=== PATIENT | male | born 1945 | race Caucasian/White ===

== ENCOUNTER 2019-03-13 07:03 | Inpatient (IN) ==
[2019-03-13] MEDS ORDERED: SODIUM CHLORIDE 0.9% 1000ML 1,000 ML IV SCH (07:30)
--- NOTE | 2019-03-13 07:33 | XRay Report ---
SINGLE VIEW CHEST CLINICAL HISTORY: Generalized abdominal pain. FINDINGS: An AP, portable, upright chest radiograph is compared to study dated 05/20/2010. The examin ation is degraded by portable technique and patient rotation. The heart is mildly enlarged and there is mild atherosclerotic calcification of the thoracic aorta. Epicardial pacing leads are in place. T he pulmonary vasculature is noncongested. There is bibasilar scarring/atelectasis. No airspace consol idation or large pleural effusion is identified. No pneumothorax is seen. The skeletal structures are osteopenic. The bony thorax is grossly intact. IMPRESSION: Mild cardiac enlargement with no acute cardiopulmonary abnormality. Electronically signed by: Austin Gray M.D. 03/13/2019 7:32 AM
[2019-03-13] MEDS ORDERED: IOVERSOL 100ml IV PRN (07:45)
[2019-03-13 07:56] LABS: Alanine Aminotransferase 20 U/L (12-78); Albumin Level 3.6 gm/dl (3.4-5.0); Aspartate Aminotransferase 15 U/L (15-37); BUN Creatinine Ratio 13.6 (10-20); Blood Urea Nitrogen 17 mg/dl (7-18); Calcium 8.9 mg/dl (8.5-10.1); Carbon Dioxide 27 mmol/L (21-32); Chloride 100 mmol/L (98-107); Est GFR (African American) 65.6; Est GFR (Non-African American) 56.6; Glucose 130 mg/dl (70-99); Potassium 3.7 mmol/L (3.5-5.1); Sodium 136 mmol/L (136-145)
[2019-03-13 07:59] LABS: INR 1.2 (0.9-1.1); Partial Thromboplastin Ratio 1.1; Partial Thromboplastin Time 31.1 Seconds (21.0-31.0); Prothrombin Time 11.8 Seconds (9.0-12.0)
[2019-03-13 08:01] LABS: Alkaline Phosphatase 84 U/L (45-117); Bilirubin,Total 1.5 mg/dl (0.2-1); Globulin 3.6 gm/dl (2.5-4.0); Total Protein 7.2 gm/dl (6.4-8.2); Troponin I < 0.015 ng/ml (0-0.045)
--- NOTE | 2019-03-13 08:02 | CT Scan Report ---
CT abd pelvis IV con only CT DOSE: 599.54 mGy.cm HISTORY: Pain. Nausea. right sided pain TECHNIQUE: Multiaxial CT images of the abdomen and pelvis were performed following the use of intrave nous contrast. A dose lowering technique was utilized adhering to the principles of ALARA. COMPARISON STUDY: None. FINDINGS: Minimal infiltrative/atelectatic process right middle lobe. Mild bibasilar dependent atelec tasis. Mild fatty replacement of liver. 1 cm cyst anterior right hepatic lobe. Kidneys enhance uniformly. There are several small renal parapelvic cysts bilaterally. No evidence fo r renal hydronephrosis. Gallbladder is distended and shows evidence for pericholecystic edema edematous change. Quadrant ultrasound is suggested to exclude acute calculus versus acalculous cholecystitis. The bowel pattern is considered nonobstructive. There is fracturing minimal nonobstructive reactive i leus. Bladder is midline. Trace amount of free fluid within the pelvic cul-de-sac. IMPRESSION: 1. Distended gallbladder with considerable pericholecystic edematous change. 2. Right upper quadrant ultrasound is recommended to exclude acute cholecystitis. 3. Focal right middle lobe atelectatic/infiltrative change. 4. Trace free fluid within the pelvic cul-de-sac. The above report was generated using voice recognition software. It may contain grammatical, syntax or spelling errors. Electronically signed by: Steve Fierro M.D. 03/13/2019 8:01 AM
[2019-03-13] MEDS ORDERED: PIPERACILLIN/TAZOBACTAM 4.5 GM/120 ML BAG IV ONE (08:06)
[2019-03-13] MEDS ORDERED: PIPERACILL/TAZOBAC CONSULT ACTIVE PRN (08:06)
[2019-03-13] MEDS ORDERED: fentaNYL citrate 100 MCG/2 ML VIAL IV PRN (08:10)
[2019-03-13] MEDS ORDERED: ONDANSETRON INJ 2 MG/ML 2 ML VIAL IV STA (08:10)
[2019-03-13 08:11] LABS: Basophils # (auto) 0.02 K/uL (0-0.2); Basophils % (auto) 0.1 %; Giant Platelets 1+; Hematocrit (blood only) 44.6 % (42-52); Hemoglobin 15.9 g/dL (14.0-18.0); Immature Granulocytes # (auto) 0.07 K/uL (0.00-0.02); Immature Granulocytes % (auto) 0.4 %; Lymphocytes # (auto) 0.92 K/uL (1.2-3.4); Lymphocytes % (auto) 4.9 %; Mean Corpuscular Hgb Conc 35.7 g/dL (32-36); Mean Corpuscular Volume 91.2 fL (80-100); Mean Platelet Volume 12.7 fL (7.4-10.4); Monocytes % (auto) 10.8 %; Neutrophils # (auto) 15.59 K/uL (1.4-6.5); Neutrophils % (auto) 83.8 %; Platelet Count 127 K/uL (130-400); Platelet Estimate Decreased (Normal); RDW Standard Deviation 50.2 fL (36.4-46.3); Red Blood Count 4.89 M/uL (4.7-6.1)
--- NOTE | 2019-03-13 08:18 | Emergency Department Note ---
Entered by Rosana Sheldon acting as a scribe for Les Jefferson DO History of Present Illness General Chief complaint: Abdominal Pain Stated complaint: STOMACH PAIN X 3 DYS Source: patient History of Present Illness Provider complaint: Abdominal pain Onset (ago): day(s) 2 Location: abdomen Radiation: flank (right) Pain Consistency: + constant Maximum Pain Intensity: 5 Quality: + dull Exacerbated By: + other (breathing ) Associated symptoms: + other (Positive: upper abdominal pain, right flank pain. Negative: groin pain, testicular pain, bloody stool, black stool); no nausea/vomiting The patient is a 73 year old male who presents to the ED with complaints of constant dull upper abdominal pain that started two days ago. The patient reports he has had abdominal pain for nine months; however, it was severe Wednesday morning. He notes his pain radiates to his right flank. The patient reports he took over the counter antacid for the pain, however it did not help. He notes his pain is worsened with breathing. He denies groin pain or testicular pain. The patient reports he takes metoprolol for atrial fibrillation. He notes he does not use tobacco or alcohol. The patient states he has history of heart valve repair. He denies history of cancer or prostate issues. The patient denies nausea, vomiting, bloody stool, or black stool. Home Medications Home Medications Medication Instructions Recorded Confirmed Type ascorbic acid (vitamin C) [Vitamin 1,500 mg PO DAILY #0 06/13/07 03/13/19 History C] multivitamin 1 tab PO DAILY #0 06/13/07 03/13/19 History cholecalciferol (vitamin D3) 1,000 unit PO DAILY #0 05/20/10 03/13/19 History [Vitamin D3] metoprolol tartrate 25 mg PO DAILY #0 11/05/10 03/13/19 History Essential 90 Powder (Multivitamin) 1 dose PO DAILY 03/13/19 03/13/19 History aspirin 81 mg PO DAILY 03/13/19 03/13/19 History turmeric root extract 500 mg PO DAILY 03/13/19 03/13/19 History zinc gluconate 50 mg PO DAILY 03/13/19 03/13/19 History Allergies Allergy/AdvReac Type Severity Reaction Status Date / Time No Known Allergies Allergy Unknown Verified 06/11/07 07:21 Past Med/Surg History Medical History Lia's syndrome (Resolved) PVCs (premature ventricular contractions) (Chronic) Paroxysmal SVT (supraventricular tachycardia) (Chronic) Hypertension (Chronic) Postoperative atrial fibrillation (Resolved) Resolved, no further recurrences Prediabetes (Chronic) Dyslipidemia (Chronic) Surgical History H/O atrial septal defect repair (Chronic) H/O inguinal hernia repair (Chronic) History of total right hip arthroplasty (Chronic) History of mitral valve repair (Chronic) Family History Mother Diabetes Social History Preferred Language: Italian Communication Ability: Effective Digital Program Manager Required: No Beliefs That Will Affect Care: None Current Living Situation: Alone Feels Safe at Home: Yes Safety Concerns: Feels Safe At This Time Smoking Status: Never smoker Do You Dip or Chew Tobacco: No ; Hx Alcohol Use: Yes Alcohol type: hard liquor Alcohol Intake Frequency: Daily Alcohol Intake Frequency Comment: 2 shots/day Hx Substance Use: No Review of Systems See HPI for pertinent positives & negatives. and A total of 10 systems reviewed and were otherwise negative Physical Exam Vital Signs Vital Signs - 24 hr 03/13/19 07:07 03/13/19 07:32 03/13/19 08:31 Temperature 36.6 C Temperature Source Oral Sepsis Recent Fever Within 48 Hours No Sepsis Action Taken by Nursing No Action Required Pulse Rate 82 Pulse Rate [Right Finger] 71 Pulse Rhythm [Right Finger] Regular Pulse Strength [Right Finger] Normal Respiratory Rate 20 20 Respiratory Effort / Characteristics Non-Labored Spontaneous Respiratory Depth Normal Blood Pressure 120/71 Blood Pressure [Left Arm] 131/74 Blood Pressure Mean 87 Blood Pressure Mean [Left Arm] 93 Blood Pressure Position [Left Arm] Lying Pulse Oximetry 98 98 Oxygen Delivery Method Room Air Room Air Room Air GENERAL: Patient is awake, alert, and in no acute distress.Patient is resting comfortably and showing no signs of anxiety EYES: The conjunctivae are clear. The pupils are round and reactive. EARS, NOSE, MOUTH AND THROAT: The nose is without any evidence of any deformity. Mucous membranes are moist.Tongue is midline NECK: The neck is nontender and supple. RESPIRATORY: Normal respiratory effort is noted. There is no evidence of wheezing rhonchi or rales to auscultation. CARDIOVASCULAR: Regular rate and rhythm noted. There no murmurs rubs or gallops normal S1 normal S2 GASTROINTESTINAL: The abdomen is soft. Bowel sounds are present in all quadrants. Abdomen is mildly distended. Right upper quadrant tenderness to palpation. Mild guarding to the right upper quadrant. BACK: No midline tenderness or or step-off noted range of motion in flexion extension as well as rotation no signs of muscle spasm noted. MUSCULOSKELETAL/EXTREMITIES: There is no evidence of gross deformity. Full range of motion is noted in the hips and shoulders. SKIN: There is no obvious evidence of any rash. There are no petechiae, pallor or cyanosis noted. NEUROLOGIC: Patient is awake alert and oriented x3. Strength is symmetric. Patellar reflexes are 2+ bilaterally. Course 0716: The patient was evaluated in room A12B. A complete history and physical exam was performed. 0808: Upon reevaluation, the patient is resting comfortably. I discussed laboratory and radiographic results with him. The patient verbalized agreement of the treatment plan. The patient will be evaluated for further management and care. 0814: I discussed the patient's cause with Marce Brown. The patient will be admitted to [facility]. 0819: I discussed the patient's cause with Dr. Barbour, General Surgery. He recommends medical admission and will evaluate the patient for further management. Consultations Consultation #1: I discussed the patient's cause with Marce Brown. The patient will be admitted to [facility]. Time: 08:14 Consultation #2: I discussed the patient's cause with Dr. Barbour, General Surgery. He recommends medical admission and will evaluate the patient for further management. Time: 08:19 Administered Medications Potassium Chloride/Sodium Chloride (Normal Saline W/20 Meq Kcl) 20 meq in 1,000 mls @ 100 mls/hr IV .Q10H [facility] Stop: 04/12/19 09:59 Last Admin: 03/13/19 20:53 Dose: 100 mls/hr Documented by: [id number] Infusion: 03/13/19 20:53 Dose: 100 mls/hr Documented by: [id number] Admin: 03/13/19 10:58 Dose: 100 mls/hr Documented by: [id number] Piperacillin Sod/Tazobactam (Sod 3.375 gm/ Dextrose) 115 mls @ 28.75 mls/hr IV Q8H [facility]; Protocol Stop: 03/23/19 13:59 Last Admin: 03/14/19 05:04 Dose: 28.8 mls/hr Documented by: [id number] Infusion: 03/14/19 01:14 Dose: 0 mls/hr Documented by: [id number] Admin: 03/13/19 21:13 Dose: 28.8 mls/hr Documented by: [id number] Infusion: 03/13/19 18:16 Dose: 0 mls/hr Documented by: [id number] Admin: 03/13/19 14:15 Dose: 28.8 mls/hr Documented by: [id number] Metoprolol Tartrate (Lopressor) 25 mg PO DAILY [facility] Stop: 04/12/19 09:59 Last Admin: 03/13/19 13:06 Dose: Not Given Documented by: [id number] Morphine Sulfate (Morphine Sulfate) 3 mg IV Q3H PRN PRN Reason: Pain Stop: 03/27/19 09:51 Last Admin: 03/13/19 15:57 Dose: 3 mg Documented by: [id number] Admin: 03/13/19 12:23 Dose: 3 mg Documented by: [id number] Discontinued Medications Fentanyl Citrate (Fentanyl Citrate) 50 mcg IV Q15M PRN PRN Reason: Pain Stop: 03/27/19 08:09 Last Admin: 03/13/19 08:16 Dose: 50 mcg Documented by: [id number] Sodium Chloride (Nss 1000ml) 1,000 mls @ 999 mls/hr IV .Q1H1M [facility] Stop: 03/13/19 08:30 Last Infusion: 03/13/19 08:32 Dose: 0 mls/hr Documented by: [id number] Admin: 03/13/19 07:31 Dose: 999 mls/hr Documented by: [id number] Piperacillin Sod/Tazobactam Sod (Zosyn) 4.5 gm in 120 mls @ 240 mls/hr IV NOW ONE Stop: 03/13/19 08:35 Last Infusion: 03/13/19 08:56 Dose: 0 mls/hr Documented by: [id number] Admin: 03/13/19 08:16 Dose: 240 mls/hr Documented by: [id number] Ioversol (Optiray 320 100ml) 94 ml IV ONCE PRN PRN Reason: Interaction Checking Stop: 03/17/19 07:44 Last Admin: 03/13/19 07:46 Dose: 94 ml Documented by: [id number] Ondansetron HCl (Zofran) 4 mg IV NOW STA Stop: 03/13/19 08:11 Last Admin: 03/13/19 08:16 Dose: 4 mg Documented by: [id number] Medical Decision Making Differential Diagnosis Differential diagnosis: Etiologies such as biliary colic, cholecystitis, hepatitis, pancreatitis, cardi ac disease, pancreatitis, gastritis, peptic ulcer disease, appendicitis, cystitis, diverticulitis, mesenteric ischemia, inflammatory bowel disease, ileus, bowel obstruction, testicular torsion, aortic pathology, shingles, as well as others were considered. Medical Records Attestation: I reviewed the patient's medical records. Home Medications Current Medication List: was personally reviewed by me Laboratory Data Attestation: I reviewed the patient's lab results. Result diagrams: 03/13/19 07:25 03/13/19 07:25 Lab Results 03/13/19 03/13/19 03/13/19 Range/Units 07:25 07:25 07:25 WBC 18.60 H (4.8-10.8) K/uL RBC 4.89 (4.7-6.1) M/uL Hgb 15.9 (14.0-18.0) g/dL Hct 44.6 (42-52) % MCV 91.2 (80-100) fL MCH 32.5 (25-34) pg MCHC 35.7 (32-36) g/dL RDW Std Deviation 50.2 H (36.4-46.3) fL RDW Coeff of Michelle 15.0 H (11.5-14.5) % Plt Count 127 L (130-400) K/uL MPV 12.7 H (7.4-10.4) fL Immature Gran % (Auto) 0.4 % Neut % (Auto) 83.8 % Lymph % (Auto) 4.9 % [place] % (Auto) 10.8 % Eos % (Auto) 0.0 % Baso % (Auto) 0.1 % Immature Gran # (Auto) 0.07 H (0.00-0.02) K/uL Neut # (Auto) 15.59 H (1.4-6.5) K/uL Lymph # (Auto) 0.92 L (1.2-3.4) K/uL [place] # (Auto) 2.00 H (0.11-0.59) K/uL Eos # (Auto) 0.00 (0-0.5) K/uL Baso # (Auto) 0.02 (0-0.2) K/uL Platelet Estimate Decreased L (Normal) Giant Platelets 1+ PT 11.8 (9.0-12.0) Seconds INR 1.2 H (0.9-1.1) APTT 31.1 H (21.0-31.0) Seconds PTT Ratio 1.1 Sodium 136 (136-145) mmol/L Potassium 3.7 (3.5-5.1) mmol/L Chloride 100 (98-107) mmol/L Carbon Dioxide 27 (21-32) mmol/L Anion Gap 9.0 (3-11) BUN 17 (7-18) mg/dl Creatinine 1.26 (0.6-1.4) mg/dl Est Cr Clr Drug Dosing Not Reportable Est GFR ( Amer) 65.6 Est GFR (Non-Af Amer) 56.6 BUN/Creatinine Ratio 13.6 (10-20) Glucose 130 H (70-99) mg/dl Estimat Average Glucose mg/dl Hemoglobin A1c (4.5-5.6) % Calcium 8.9 (8.5-10.1) mg/dl Total Bilirubin 1.5 H (0.2-1) mg/dl AST 15 (15-37) U/L ALT 20 (12-78) U/L Alkaline Phosphatase 84 (45-117) U/L Troponin I < 0.015 (0-0.045) ng/ml Total Protein 7.2 (6.4-8.2) gm/dl Albumin 3.6 (3.4-5.0) gm/dl Globulin 3.6 (2.5-4.0) gm/dl Albumin/Globulin Ratio 1.0 (0.9-2) Lipase 64 L (73-393) U/L 03/13/19 Range/Units 07:25 WBC (4.8-10.8) K/uL RBC (4.7-6.1) M/uL Hgb (14.0-18.0) g/dL Hct (42-52) % MCV (80-100) fL MCH (25-34) pg MCHC (32-36) g/dL RDW Std Deviation (36.4-46.3) fL RDW Coeff of Michelle (11.5-14.5) % Plt Count (130-400) K/uL MPV (7.4-10.4) fL Immature Gran % (Auto) % Neut % (Auto) % Lymph % (Auto) % [place] % (Auto) % Eos % (Auto) % Baso % (Auto) % Immature Gran # (Auto) (0.00-0.02) K/uL Neut # (Auto) (1.4-6.5) K/uL Lymph # (Auto) (1.2-3.4) K/uL [place] # (Auto) (0.11-0.59) K/uL Eos # (Auto) (0-0.5) K/uL Baso # (Auto) (0-0.2) K/uL Platelet Estimate (Normal) Giant Platelets PT (9.0-12.0) Seconds INR (0.9-1.1) APTT (21.0-31.0) Seconds PTT Ratio Sodium (136-145) mmol/L Potassium (3.5-5.1) mmol/L Chloride (98-107) mmol/L Carbon Dioxide (21-32) mmol/L Anion Gap (3-11) BUN (7-18) mg/dl Creatinine (0.6-1.4) mg/dl Est Cr Clr Drug Dosing Est GFR ( Amer) Est GFR (Non-Af Amer) BUN/Creatinine Ratio (10-20) Glucose (70-99) mg/dl Estimat Average Glucose 117 mg/dl Hemoglobin A1c 5.7 H (4.5-5.6) % Calcium (8.5-10.1) mg/dl Total Bilirubin (0.2-1) mg/dl AST (15-37) U/L ALT (12-78) U/L Alkaline Phosphatase (45-117) U/L Troponin I (0-0.045) ng/ml Total Protein (6.4-8.2) gm/dl Albumin (3.4-5.0) gm/dl Globulin (2.5-4.0) gm/dl Albumin/Globulin Ratio (0.9-2) Lipase (73-393) U/L Imaging Data Radiologist's Impression: Radiology results as stated below per my review and the radiologist's interpretation: SINGLE VIEW CHEST CLINICAL HISTORY: Generalized abdominal pain. FINDINGS: An AP, portable, upright chest radiograph is compared to study dated 05/20/2010. The examination is degraded by portable technique and patient rotation. The heart is mildly enlarged and there is mild atherosclerotic calcification of the thoracic aorta. Epicardial pacing leads are in place. The pulmonary vasculature is noncongested. There is bibasilar scarring/atelectasis. No airspace consolidation or large pleural effusion is identified. No pneumothorax is seen. The skeletal structures are osteopenic. The bony thorax is grossly intact. IMPRESSION: Mild cardiac enlargement with no acute cardiopulmonary abnormality. Electronically signed by: Austin Gray M.D. 03/13/2019 7:[address] abd pelvis IV con only CT DOSE: 599.54 mGy.cm HISTORY: Pain. Nausea. right sided pain TECHNIQUE: Multiaxial CT images of the abdomen and pelvis were performed following the use of intravenous contrast. A dose lowering technique was utilized adhering to the principles of ALARA. COMPARISON STUDY: None. FINDINGS: Minimal infiltrative/atelectatic process right middle lobe. Mild bibasilar dependent atelectasis. Mild fatty replacement of liver. 1 cm cyst anterior right hepatic lobe. Kidneys enhance uniformly. There are several small renal parapelvic cysts bilaterally. No evidence for renal hydronephrosis. Gallbladder is distended and shows evidence for pericholecystic edema edematous change. Quadrant ultrasound is suggested to exclude acute calculus versus acalculous cholecystitis. The bowel pattern is considered nonobstructive. There is fracturing minimal nonobstructive reactive ileus. Bladder is midline. Trace amount of free fluid within the pelvic cul-de-sac. IMPRESSION: 1. Distended gallbladder with considerable pericholecystic edematous change. 2. Right upper quadrant ultrasound is recommended to exclude acute cholecystitis. 3. Focal right middle lobe atelectatic/infiltrative change. 4. Trace free fluid within the pelvic cul-de-sac. The above report was generated using voice recognition software. It may contain grammatical, syntax or spelling errors. Electronically signed by: Steve Fierro M.D. 03/13/2019 8:01 AM ECG Data Attestation: I personally reviewed and interpreted this ECG as follows: Indication: abdominal pain Rate (beats per minute): 77 Rhythm: normal sinus Findings: + ST depression (diffused); no ectopy Comparison ECG Date: from (05/20/10) Change: no significant change Blood Pressure Blood Pressure Findings: Normal blood pressure Blood Pressure Disposition: did not require urgent referral MDM Narrative The patient is a 73-year-old male who presented to the emergency department for an evaluation of right upper quadrant abdominal pain. The patient's history and physical exam appear to be consistent with gallbladder pathology. Given his age and comorbidities other laboratory and radiographic studies were obtained. The patient was treated with IV fluids and IV pain medication in the emergency department. He was also started on IV antibiotics after his CT revealed signs of cholecystitis. I discussed the patient's laboratory and radiographic studies with him. He did have intermittent pain over the last 9 months but pain appeared to have worsened over the last 3 days. I discussed his case with the on-call [facility] hospitalist group. They have agreed to evaluate the patient in the emergency department for further management disposition. I also d iscussed this case with the general surgical service. They have agreed to evaluate the patient for further management. The patient was reevaluated multiple times. He was feeling much better on subsequent reevaluation. Impression & Plan Cholecystitis, Right upper quadrant abdominal pain Discharge Plan Visit Data *Final* Discharge Date/Time: 03/13/19 09:34 Chief Complaint: Abdominal Pain Stated Complaint: STOMACH PAIN X 3 DYS ED Provider: Les Jefferson Discharge Problem: Cholecystitis, Right upper quadrant abdominal pain Patient Disposition: Admitted As Inpatient Discharge Instructions Interventions: ED Discharge Assessment Last Done: 03/13/19 09:34 The scribe's documentation has been prepared under my direction and personally reviewed by me in its entirety. I confirm that the note above accurately reflects all work, treatment, procedures, and medical decision making performed by me.
--- NOTE | 2019-03-13 09:28 | History & Physical Report ---
Date of Service March 13, 2019 Assessment & Plan (1) Abdominal pain: (2) Acute cholecystitis: -Admit to [facility] -Patient presenting from home with reports of abdominal pain, has been intermittent for the past 9 months however became more persistent 4 days ago -CT ABD/pelvis showing distended gallbladder with considerable pericholecystic edematous change -WBC 18 K, otherwise hemodynamically stable -Received IV Zosyn in the ED, will continue with -Continue supportive care with IVF, pain and nausea control -Case discussed with Dr. Barbour, requesting MRCP at this time -no plans for surgery yet -EKG shows new T wave inversions in the inferior leads; patient denies cardiopulmonary complaints; had echo 03/03/2019 as an outpatient that demonstrated normal LVEF, no wall motion normalities; given this, patient likely does not need further cardiac work-up in the event he goes to the OR (3) Paroxysmal SVT (supraventricular tachycardia): (4) PVCs (premature ventricular contractions): -No acute issues -Continue beta-stas (5) DVT prophylaxis: -SCDs in the event patient needs invasive procedure History of Present Illness Chief Complaint: Abdominal pain Primary Care Provider: Lydia Casey DO 73-year-old male who presents to the ED with abdominal pain. Patient reports his pain has been intermittent for the past 9 months. He had acute worsening of his pain 4 days ago after eating chicken wings. Patient reports pain is been persistent since that time. He describes the pain as generalized and a dull ache. He has had a poor appetite however denies nausea and vomiting. No diarrhea. Reports he fell feverish and had chills however did not take his temperature. Patient has been otherwise doing well recently. He denies chest pain shortness of breath. No lightheadedness, dizziness, diaphoresis, syncopal events. No urinary symptoms. In the ED, CT ABD/pelvis shows distended gallbladder with considerable pericholecystic edematous change. WBC 18 K. Patient otherwise hemodynamically stable. He was given IVF, IV Zofran, IV Zosyn, IV fentanyl. Allergies Allergy/AdvReac Type Severity Reaction Status Date / Time No Known Allergies Allergy Unknown Verified 06/11/07 07:21 Home Medications Home Medications Medication Instructions Recorded Confirmed Type ascorbic acid (vitamin C) [Vitamin 1,500 mg PO DAILY #0 06/13/07 03/13/19 History C] multivitamin 1 tab PO DAILY #0 06/13/07 03/13/19 History cholecalciferol (vitamin D3) 1,000 unit PO DAILY #0 05/20/10 03/13/19 History [Vitamin D3] metoprolol tartrate 25 mg PO DAILY #0 11/05/10 03/13/19 History Essential 90 Powder (Multivitamin) 1 dose PO DAILY 03/13/19 03/13/19 History aspirin 81 mg PO DAILY 03/13/19 03/13/19 History turmeric root extract 500 mg PO DAILY 03/13/19 03/13/19 History zinc gluconate 50 mg PO DAILY 03/13/19 03/13/19 History Past Med/Surg History Medical History Lia's syndrome (Resolved) PVCs (premature ventricular contractions) (Chronic) Paroxysmal SVT (supraventricular tachycardia) (Chronic) Hypertension (Chronic) Postoperative atrial fibrillation (Resolved) Resolved, no further recurrences Prediabetes (Chronic) Dyslipidemia (Chronic) Surgical History H/O atrial septal defect repair (Chronic) H/O inguinal hernia repair (Chronic) History of total right hip arthroplasty (Chronic) History of mitral valve repair (Chronic) Family History Mother Diabetes Social History Preferred Language: Yakut Communication Ability: Effective Customer Support Executive Required: No Beliefs That Will Affect Care: None Current Living Situation: Alone Feels Safe at Home: Yes Safety Concerns: Feels Safe At This Time Smoking Status: Never smoker Do You Dip or Chew Tobacco: No ; Hx Alcohol Use: Yes Alcohol type: hard liquor Alcohol Intake Frequency: Daily Alcohol Intake Frequency Comment: 2 shots/day Hx Substance Use: No Review of Systems Review of Systems: ROS per HPI, all other systems reviewed and negative Physical Exam Constitutional: WD/WN, vitals as above Eyes: PERRL, conjunctivae normal, anicteric sclerae ENMT: external ear and nose normal, oropharynx normal Respiratory: normal respiratory effort, lungs clear to auscultation Cardiovascular: Rate/Rhythm: regular rate and regular rhythm Vessels: normal peripheral pulses Extremities: no edema Gastrointestinal (Abdomen): Inspection/Auscultation: + abdomen distended and normal bowel sounds Percussion/Palpation: + abdomen tender (RLQ, RUQ) and abdomen soft; no hepatosplenomegaly Musculoskeletal: no cyanosis or clubbing, extremities motor strength 5/5 Skin: no rashes, warm and dry Neurologic: PERRL, EOMI, accommodation nl, no face palsy, no dysarthria Psychiatric: A+Ox3, euthymic affect Results & Data Vital Signs (Past 12 Hours) Vital Signs Temp Pulse Pulse Resp BP BP Pulse Ox 03/13/19 08:31 71 20 131/74 98 03/13/19 07:07 36.6 C 82 20 120/71 98 Laboratory Results Short CBC 03/13/19 Range/Units 07:25 WBC 18.60 H (4.8-10.8) K/uL Hgb 15.9 (14.0-18.0) g/dL Hct 44.6 (42-52) % Plt Count 127 L (130-400) K/uL BMP 03/13/19 07:25 Sodium 136 Potassium 3.7 Chloride 100 Carbon Dioxide 27 BUN 17 Creatinine 1.26 Glucose 130 H Calcium 8.9 Cardiac Enzymes 03/13/19 Range/Units 07:25 Troponin I < 0.015 (0-0.045) ng/ml Liver Function 03/13/19 Range/Units 07:25 Total Bilirubin 1.5 H (0.2-1) mg/dl AST 15 (15-37) U/L ALT 20 (12-78) U/L Alkaline Phosphatase 84 (45-117) U/L Albumin 3.6 (3.4-5.0) gm/dl Diagnostic Findings CT ABD/PELVIS IMPRESSION: 1. Distended gallbladder with considerable pericholecystic edematous change. 2. Right upper quadrant ultrasound is recommended to exclude acute cholecystitis. 3. Focal right middle lobe atelectatic/infiltrative change. 4. Trace free fluid within the pelvic cul-de-sac. CXR IMPRESSION: Mild cardiac enlargement with no acute cardiopulmonary abnormality. Code Status & VTE Plan VTE Prophylaxis Plan VTE Prophylaxis will be ordered: Yes Supervising Physician Co-Signing Physician Notes Patient is a 73 yr male with H/O paroxysmal SVT, PVCs, and Lia syndrome and other problems presents with history of intermittent abdominal pain since many months, which has been gradually worsening since 4 days duration. Reports associated poor appetite, nausea and chills. CT abdomen suggestive of distended gallbladder with considerable pericholecystic edematous change suggestive of acute cholecystitis. His white blood cell count is elevated at 18 K. Also noted thrombocytopenia on CBC. On exam patient is moderately built and nourished, no apparent distress, normocephalic atraumatic, lungs are clear to auscultation, S1-S2, no murmur, abdomen soft, mild tenderness in the right lower quadrant, epigastric region. Grossly no focal neurological deficits, no pedal edema. Patient is admitted for management of acute cholecystitis. Thrombocytopenia--monitor Platelets. Started on IV Zosyn, IV fluids, pain control. Consulted surgery for further management. Agree with continuing metoprolol for paroxysmal SVT. Further management based on HIDA scan as recommended by Surgery. I personally reviewed the record. Patient is interviewed and examined at bedside. Patient's care is coordinated with Izabella Snell NP. Please refer to the documentation above for details of patient's presentation and for discussion of other issues.
[2019-03-13] MEDS ORDERED: ACETAMINOPHEN 325 MG TAB PO PRN (09:52)
[2019-03-13 10:20] LABS: Estimated Average Glucose 117 mg/dl; Hemoglobin A1C 5.7 % (4.5-5.6)
[2019-03-13] MEDS ORDERED: PATIENT'S HEIGHT AND/OR WEIGHT NEEDED SCH (10:30)
--- NOTE | 2019-03-13 10:51 | Surgery Consultation ---
Date of Consultation March 13, 2019 Assessment & Plan (1) Acute cholecystitis: pt is a 73 year old male who presents to ER with 3 days history abdominal pain, CT scan dx acute cholecystitis, IMP: Acute cholecystitis, possible CBD stone, cholangitis Plan, agree with hospitalist admit pt to hospital, MRCP, GI consult, possible ERCP, repeat labs in am, CBC, CMP, lipase, will F/U pt agrees with the plan, I answered all questions, History of Present Illness Attending Physician: Chief Complaint: Abdominal pain Primary Care Provider: Lydia Casey DO 73-year-old male who presents to the ED with abdominal pain. Patient reports his pain has been intermittent for the past 9 months. He had acute worsening of his pain 4 days ago after eating chicken wings. Patient reports pain is been persistent since that time. He describes the pain as generalized and a dull ache. He has had a poor appetite however denies nausea and vomiting. No diarrhea. Reports he fell feverish and had chills however did not take his temperature. Patient has been otherwise doing well recently. He denies chest pain shortness of breath. No lightheadedness, dizziness, diaphoresis, syncopal events. No urinary symptoms. In the ED, CT ABD/pelvis shows distended gallbladder with considerable pericholecystic edematous change. WBC 18 K. Patient otherwise hemodynamically stable. He was given IVF, IV Zofran, IV Zosyn, IV fentanyl. I ( Toby Barbour MD) got a call for consult this pt, I reviewed pt's H/P with pt at ER, pt is still have some RUQ pain, Allergies Allergy/AdvReac Type Severity Reaction Status Date / Time No Known Allergies Allergy Unknown Verified 06/11/07 07:21 Home Medications Home Medications Medication Instructions Recorded Confirmed Type ascorbic acid (vitamin C) [Vitamin 1,500 mg PO DAILY #0 06/13/07 03/13/19 History C] multivitamin 1 tab PO DAILY #0 06/13/07 03/13/19 History cholecalciferol (vitamin D3) 1,000 unit PO DAILY #0 05/20/10 03/13/19 History [Vitamin D3] metoprolol tartrate 25 mg PO DAILY #0 11/05/10 03/13/19 History Essential 90 Powder (Multivitamin) 1 dose PO DAILY 03/13/19 03/13/19 History aspirin 81 mg PO DAILY 03/13/19 03/13/19 History turmeric root extract 500 mg PO DAILY 03/13/19 03/13/19 History zinc gluconate 50 mg PO DAILY 03/13/19 03/13/19 History Patient History Medical History Lia's syndrome (Resolved) PVCs (premature ventricular contractions) (Chronic) Paroxysmal SVT (supraventricular tachycardia) (Chronic) Hypertension (Chronic) Postoperative atrial fibrillation (Resolved) Resolved, no further recurrences Prediabetes (Chronic) Dyslipidemia (Chronic) Surgical History H/O atrial septal defect repair (Chronic) H/O inguinal hernia repair (Chronic) History of total right hip arthroplasty (Chronic) History of mitral valve repair (Chronic) Family History Mother Diabetes Social History Preferred Language: Lao Communication Ability: Effective State Trooper Required: No Beliefs That Will Affect Care: None Current Living Situation: Alone Feels Safe at Home: Yes Safety Concerns: Feels Safe At This Time Smoking Status: Never smoker Do You Dip or Chew Tobacco: No ; Hx Alcohol Use: Yes Alcohol type: hard liquor Alcohol Intake Frequency: Daily Alcohol Intake Frequency Comment: 2 shots/day Hx Substance Use: No Review of Systems Review of Systems: All systems reviewed & are unremarkable except as noted in HPI & below Physical Exam Constitutional: WD/WN, vitals as above well developed and well nourished ENMT: external ear and nose normal, oropharynx normal Neck: trachea midline, no thyromegaly Respiratory: normal respiratory effort, lungs clear to auscultation normal respiratory effort Cardiovascular: RRR, no murmur, no edema Rate/Rhythm: regular rate and regular rhythm Gastrointestinal (Abdomen): normal bowel sounds, soft, nontender, no hepatosplenomegaly tenderness at RUQ, no rebound pain Musculoskeletal: no cyanosis or clubbing, extremities motor strength 5/5 Neurologic: patellar DTR's 2+ bilat, sensation intact Psychiatric: A+Ox3, euthymic affect Orientation: alert and oriented x 3 Results & Data Vital Signs (Past 12 Hours) Vital Signs Temp Pulse Pulse Resp BP BP Pulse Ox 03/13/19 09:45 36.6 C 76 17 118/70 95 03/13/19 08:31 71 20 131/74 98 03/13/19 07:07 36.6 C 82 20 120/71 98 Laboratory Results Abnormal lab results 03/13/19 03/13/19 03/13/19 Range/Units 07:25 07:25 07:25 WBC 18.60 H (4.8-10.8) K/uL RDW Std Deviation 50.2 H (36.4-46.3) fL RDW Coeff of Michelle 15.0 H (11.5-14.5) % Plt Count 127 L (130-400) K/uL MPV 12.7 H (7.4-10.4) fL Immature Gran # (Auto) 0.07 H (0.00-0.02) K/uL Neut # (Auto) 15.59 H (1.4-6.5) K/uL Lymph # (Auto) 0.92 L (1.2-3.4) K/uL Bracken # (Auto) 2.00 H (0.11-0.59) K/uL Platelet Estimate Decreased L (Normal) INR 1.2 H (0.9-1.1) APTT 31.1 H (21.0-31.0) Seconds Glucose 130 H (70-99) mg/dl Hemoglobin A1c (4.5-5.6) % Total Bilirubin 1.5 H (0.2-1) mg/dl Lipase 64 L (73-393) U/L 03/13/19 Range/Units 07:25 WBC (4.8-10.8) K/uL RDW Std Deviation (36.4-46.3) fL RDW Coeff of Michelle (11.5-14.5) % Plt Count (130-400) K/uL MPV (7.4-10.4) fL Immature Gran # (Auto) (0.00-0.02) K/uL Neut # (Auto) (1.4-6.5) K/uL Lymph # (Auto) (1.2-3.4) K/uL Bracken # (Auto) (0.11-0.59) K/uL Platelet Estimate (Normal) INR (0.9-1.1) APTT (21.0-31.0) Seconds Glucose (70-99) mg/dl Hemoglobin A1c 5.7 H (4.5-5.6) % Total Bilirubin (0.2-1) mg/dl Lipase (73-393) U/L Diagnostic Findings CT abd pelvis IV con only CT DOSE: 599.54 mGy.cm HISTORY: Pain. Nausea. right sided pain TECHNIQUE: Multiaxial CT images of the abdomen and pelvis were performed following the use of intravenous contrast. A dose lowering technique was utilized adhering to the principles of ALARA. COMPARISON STUDY: None. FINDINGS: Minimal infiltrative/atelectatic process right middle lobe. Mild bibasilar dependent atelectasis. Mild fatty replacement of liver. 1 cm cyst anterior right hepatic lobe. Kidneys enhance uniformly. There are several small renal parapelvic cysts bilaterally. No evidence for renal hydronephrosis. Gallbladder is distended and shows evidence for pericholecystic edema edematous change. Quadrant ultrasound is suggested to exclude acute calculus versus acalculous cholecystitis. The bowel pattern is considered nonobstructive. There is fracturing minimal nonobstructive reactive ileus. Bladder is midline. Trace amount of free fluid within the pelvic cul-de-sac. IMPRESSION: 1. Distended gallbladder with considerable pericholecystic edematous change. 2. Right upper quadrant ultrasound is recommended to exclude acute cholecystitis. 3. Focal right middle lobe atelectatic/infiltrative change. 4. Trace free fluid within the pelvic cul-de-sac.
--- NOTE | 2019-03-13 10:55 | Surgery Consultation ---
Date of Consultation March 13, 2019 History of Present Illness Attending Physician: Caleb Marshall MD Allergies Allergy/AdvReac Type Severity Reaction Status Date / Time No Known Allergies Allergy Unknown Verified 06/11/07 07:21 Home Medications Home Medications Medication Instructions Recorded Confirmed Type ascorbic acid (vitamin C) [Vitamin 1,500 mg PO DAILY #0 06/13/07 03/13/19 History C] multivitamin 1 tab PO DAILY #0 06/13/07 03/13/19 History cholecalciferol (vitamin D3) 1,000 unit PO DAILY #0 05/20/10 03/13/19 History [Vitamin D3] metoprolol tartrate 25 mg PO DAILY #0 11/05/10 03/13/19 History Essential 90 Powder (Multivitamin) 1 dose PO DAILY 03/13/19 03/13/19 History aspirin 81 mg PO DAILY 03/13/19 03/13/19 History turmeric root extract 500 mg PO DAILY 03/13/19 03/13/19 History zinc gluconate 50 mg PO DAILY 03/13/19 03/13/19 History Patient History Medical History Lia's syndrome (Resolved) PVCs (premature ventricular contractions) (Chronic) Paroxysmal SVT (supraventricular tachycardia) (Chronic) Hypertension (Chronic) Postoperative atrial fibrillation (Resolved) Resolved, no further recurrences Prediabetes (Chronic) Dyslipidemia (Chronic) Surgical History H/O atrial septal defect repair (Chronic) H/O inguinal hernia repair (Chronic) History of total right hip arthroplasty (Chronic) History of mitral valve repair (Chronic) Family History Mother Diabetes Social History Preferred Language: South African Communication Ability: Effective Mailroom Personnel Required: No Beliefs That Will Affect Care: None Current Living Situation: Alone Feels Safe at Home: Yes Safety Concerns: Feels Safe At This Time Smoking Status: Never smoker Do You Dip or Chew Tobacco: No ; Hx Alcohol Use: Yes Alcohol type: hard liquor Alcohol Intake Frequency: Daily Alcohol Intake Frequency Comment: 2 shots/day Hx Substance Use: No Results & Data Vital Signs (Past 12 Hours) Vital Signs Temp Pulse Pulse Resp BP BP Pulse Ox 03/13/19 09:45 36.6 C 76 17 118/70 95 03/13/19 08:31 71 20 131/74 98 03/13/19 07:07 36.6 C 82 20 120/71 98
[2019-03-13] MEDS: NSS + 20MEQ KCL 20 MEQ/1,000 ML BAG IV SCH ×2 (10:58→20:53)
[2019-03-13] MEDS: MoRPHine SULFATE 4 MG/ML 1 ML CARP\\VIAL IV PRN ×2 (12:23→15:57)
[2019-03-13] MEDS ORDERED: ONDANSETRON INJ 2 MG/ML 2 ML VIAL IV PRN (12:28)
[2019-03-13 12:41] LABS: Appearance Urine Clear (Clear); Bacteria Urine Automated Negative (Negative); Bilirubin Urine Negative (Negative); Blood Urine Trace (Negative); Cast Urine Automated 0 /lpf (0-5); Color Urine Yellow; Glucose Urine UA Negative (Negative); Ketones Urine Negative (Negative); Leukocyte Esterase Urine Negative (Negative); Nitrite Urine Negative (Negative); Protein Urine 1+ (Negative); RBC Urine Automated 0-4 /hpf (0-4); Specific Gravity Urine > 1.045 (1.000-1.030); Urobilinogen Urine Negative (Negative)
[2019-03-13] MEDS: METOPROLOL TARTRATE 25 MG TAB PO SCH (13:06)
[2019-03-13] MEDS: PIPERACILLIN/TAZOBACTAM 3.375 GM in DEXTROSE 5% 100 ML IV SCH ×2 (14:15→21:13)
[2019-03-14] MEDS: PIPERACILLIN/TAZOBACTAM 3.375 GM in DEXTROSE 5% 100 ML IV SCH ×3 (05:04→22:25)
[2019-03-14] MEDS: NSS + 20MEQ KCL 20 MEQ/1,000 ML BAG IV SCH ×2 (06:29→18:35)
[2019-03-14 07:42] LABS: Hematocrit (blood only) 37.3 % (42-52); Mean Corpuscular Hgb Conc 34.9 g/dL (32-36); Mean Corpuscular Volume 91.2 fL (80-100); Mean Platelet Volume 12.3 fL (7.4-10.4); Platelet Count 97 K/uL (130-400); RDW Coefficient of Variation 15.1 % (11.5-14.5); RDW Standard Deviation 50.7 fL (36.4-46.3); Red Blood Count 4.09 M/uL (4.7-6.1); White Blood Count 7.36 K/uL (4.8-10.8)
[2019-03-14 08:16] LABS: Albumin Globulin Ratio 0.8 (0.9-2); Albumin Level 2.5 gm/dl (3.4-5.0); BUN Creatinine Ratio 15.9 (10-20); Bilirubin,Total 3.1 mg/dl (0.2-1); Calcium 8.1 mg/dl (8.5-10.1); Creatinine Clr Calc Pharmacy 67.5 ml/min; Est GFR (African American) 76.5; Globulin 3.1 gm/dl (2.5-4.0); Potassium 3.8 mmol/L (3.5-5.1); Total Protein 5.6 gm/dl (6.4-8.2)
[2019-03-14] MEDS: METOPROLOL TARTRATE 25 MG TAB PO SCH (08:41)
--- NOTE | 2019-03-14 09:07 | Gastrointestinal Consultation ---
Date of Consultation March 14, 2019 Assessment & Plan (1) Dilated bile duct: His pain and imaging studies as well as elevated LFTs are all suggestive of choledocholithiasis but w/o evidence of cholangitis (no leukocytosis or fevers). Will plan for ERCP early tomorrow. Clear liquids po today, NPO after midnight. Present on Admission?: Yes (2) Elevated LFTs: Present on Admission?: No Supervising Physician Co-Signing Physician Notes I have seen and examined the patient with MARIANO Troy. PE- well nourished male in nad, abd - soft nt nd +bs Labs reviewed HIDA reviewed Agree with further assessment and plan per Jasper's note - ERCP tomorrow morning at 7:15 am. History of Present Illness Reason for Consultation: " elevated t. bili, unable to get MRCP, HIDA today" Requesting Physician: Dr. Barbour Attending Physician: Caleb Marshall MD History of Present Illness Mr. Rob Gomez is a 73 yr old male pt of Dr. Casey with a hx of paroxysmal PVT, PVCs, Lia's Syndrome who presented on 03/13 for abdominal pain. He is awake, alert, oriented. he reports that his stomach, "hasn't felt right for months," though those symptoms were vague and were mostly consisting of abdominal bloating after eating as well as migratory abdominal discomfort. On Wednesday, 03/11, he awakened in the morning with moderately severe epigastric and LUQ pain, after having eaten a high fat dinner the evening before. Since Wednesday, he has not eating as he hasn't had an appetite and he feared that it would worsen the pain. The pain is better, but still persists, now in the RUQ. With the pain, he has felt hot and had some sweating. On Wednesday, he passed a very light pickens/gonzales BM. He has had dark urine but no jaundice. On arrival, CT abd/pelvis with IV contrast with a distended gallbladder and pericholecystic edema. LFTs and lipase were normal on arrival. However, LFTs have increased today: T Bili 1.5->3.1, AST 15 ->290, ALT 20 ->351, Alk Phos 84- >281. HIDA w/o passage of bile to the duodenum and US with bile duct prominence, thus possible cholelithiasis. Surgery has seen the pt and plans for chol ecystectomy but is awaiting GI decision regarding ERCP. Allergies Allergy/AdvReac Type Severity Reaction Status Date / Time No Known Allergies Allergy Unknown Verified 06/11/07 07:21 Home Medications Home Medications Medication Instructions Recorded Confirmed Type ascorbic acid (vitamin C) [Vitamin 1,500 mg PO DAILY #0 06/13/07 03/13/19 History C] multivitamin 1 tab PO DAILY #0 06/13/07 03/13/19 History cholecalciferol (vitamin D3) 1,000 unit PO DAILY #0 05/20/10 03/13/19 History [Vitamin D3] metoprolol tartrate 25 mg PO DAILY #0 11/05/10 03/13/19 History Essential 90 Powder (Multivitamin) 1 dose PO DAILY 03/13/19 03/13/19 History aspirin 81 mg PO DAILY 03/13/19 03/13/19 History turmeric root extract 500 mg PO DAILY 03/13/19 03/13/19 History zinc gluconate 50 mg PO DAILY 03/13/19 03/13/19 History Patient History Medical History Lia's syndrome (Resolved) PVCs (premature ventricular contractions) (Chronic) Paroxysmal SVT (supraventricular tachycardia) (Chronic) Hypertension (Chronic) Postoperative atrial fibrillation (Resolved) Resolved, no further recurrences Prediabetes (Chronic) Dyslipidemia (Chronic) Surgical History H/O atrial septal defect repair (Chronic) H/O inguinal hernia repair (Chronic) History of total right hip arthroplasty (Chronic) History of mitral valve repair (Chronic) Family History Mother Diabetes Social History Preferred Language: Czech Communication Ability: Effective Playground Worker Required: No Beliefs That Will Affect Care: None Current Living Situation: Alone Feels Safe at Home: Yes Safety Concerns: Feels Safe At This Time Smoking Status: Never smoker Do You Dip or Chew Tobacco: No ; Hx Alcohol Use: Yes Alcohol type: hard liquor Alcohol Intake Frequency: Daily Alcohol Intake Frequency Comment: 2 shots/day Hx Substance Use: No Review of Systems Review of Systems: ROS: Gen: Denies weakness, fevers, weight loss Eyes: No eye redness, or pain, no recent vision changes Resp: + increased abd pain with deep breaths but, no SOB, no cough Cardio: No palpitations/irregular beats, no chest pain GI: + abdominal pain, + nausea, no vomiting : Denies pain on urination Skin: No jaundice, itching or new rashes Physical Exam Constitutional: WD/WN, vitals as above well developed Eyes: PERRL, conjunctivae normal, anicteric sclerae ENMT: external ear and nose normal, oropharynx normal Neck: trachea midline, no thyromegaly Respiratory: normal respiratory effort, lungs clear to auscultation Cardiovascular: RRR, no murmur, no edema Gastrointestinal (Abdomen): Inspection/Auscultation: abdomen normal to inspection; abdomen not distended Percussion/Palpation: + abdomen tender (mild, diffuse upper abdomen tenderness) and abdomen soft Musculoskeletal: no cyanosis or clubbing, extremities motor strength 5/5 Skin: no rashes, warm and dry no jaundice Neurologic: PERRL, EOMI, accommodation nl, no face palsy, no dysarthria Psychiatric: A+Ox3, euthymic affect Lymphatic: no cervical or axillary lymphadenopathy Results & Data Vital Signs (Past 12 Hours) Vital Signs Temp Pulse Resp BP BP Pulse Ox 03/14/19 07:51 36.8 C 55 L 16 104/62 95 03/13/19 23:42 36.7 C 59 L 15 101/64 93 Laboratory Results LFTs T Bili 1.5->3.1, AST 15 ->290, ALT 20 ->351, Alk Phos 84->281. WBC 7.36, Hb 13, hct 37, Platelets 97. Na 139, K 3.8, Cl 107, CO2 26, BUN 18, Cr 1.11 HCV (-) Diagnostic Findings CT abd/pelvis with IV, no oral contrast on 03/13/19: 1. Distended gallbladder with considerable pericholecystic edematous change. 2. Right upper quadrant ultrasound is recommended to exclude acute cholecystitis. 3. Focal right middle lobe atelectatic/infiltrative change. 4. Trace free fluid within the pelvic cul-de-sac. HIDA 03/14/19: 1. Patency of the common duct cannot be confirmed given lack of passage of radiotracer into the small bowel. Choledocholithiasis is not excluded. 2. Visualization of the gallbladder before 1 hour. No convincing evidence of acute cholecystitis. US 03/04/19: 1. Despite the negative Corrales's sign, findings are highly suspicious for acute or chronic cholecystitis. HIDA scan findings from earlier today may favor chronic cholecystitis over acute. Surgical consultation is recommended. 2. Extrahepatic biliary ductal prominence could suggest choledocholithiasis.
--- NOTE | 2019-03-14 09:48 | Nuclear Medicine Report ---
NM hepatobiliary CLINICAL HISTORY: 73 years-old Male presenting with elevated t. bili, abdominal pain for 3 days, poss ible common bile duct stone. TECHNIQUE: Immediately following the intravenous administration of 5.5 mCi Tc-99m Choletec, dynamic a nterior abdominal imaging was performed. No morphine administration was administered due to nonvisual ization of the small bowel. 75 minute delayed anterior view was also obtained. COMPARISON: 03/13/2019. FINDINGS: Uniform hepatic tracer accumulation is shown. Delayed intrahepatic biliary excretion is seen. The com mon bile duct is visualized by 36-40 minutes. The gallbladder is visualized by 51-55 minutes. No radi otracer passage into the small bowel. IMPRESSION: 1. Patency of the common duct cannot be confirmed given lack of passage of radiotracer into the smal l bowel. Choledocholithiasis is not excluded. 2. Visualization of the gallbladder before 1 hour. No convincing evidence of acute cholecystitis. Electronically signed by: Piter Vargas M.D. 03/14/2019 9:47 AM
--- NOTE | 2019-03-14 11:11 | Ultrasound Report ---
US abdomen limited CLINICAL HISTORY: 73 years-old Male presenting with acute cholecystitis, biliary gallbladder study. TECHNIQUE: Real-time grayscale and limited color Doppler ultrasound imaging of the abdomen limited to the right upper quadrant was performed. COMPARISON: CT from 03/13/2019. FINDINGS: Pancreas: Largely obscured due to overlying bowel gas. Liver: Normal echogenicity and echotexture. The liver measures 15.9 cm in maximal sagittal dimension. No sonographic evidence of hepatic mass. Main portal vein patent with normal directional flow. Biliary: No intrahepatic biliary ductal dilatation. Common bile duct measures up to 7 mm in diameter, which is mildly dilated. Gallbladder: Gallbladder distended with sludge and calculi. Pericholecystic fluid is noted with sever e wall thickening of up to 1 cm. Sonographic Corrales's sign negative. Right kidney: Normal in appearance without evidence of hydronephrosis. Ascites: None. Other: None. IMPRESSION: 1. Despite the negative Corrales's sign, findings are highly suspicious for acute or chronic cholecyst itis. HIDA scan findings from earlier today may favor chronic cholecystitis over acute. Surgical cons ultation is recommended. 2. Extrahepatic biliary ductal prominence could suggest choledocholithiasis. The report will be called/faxed according to standard departmental protocol. Electronically signed by: Piter Vargas M.D. 03/14/2019 11:09 AM
--- NOTE | 2019-03-14 14:56 | Surgery Progress Note ---
Date of Service March 14, 2019 Assessment & Plan (1) Acute cholecystitis: CT scan with pericholecystic fluid and edema consistent with acute cholecystitis. Elevated leukocytosis on admission of 18K. LFTS within normal limits however t. bili was slightly elevated at 1.5. Unable to obtain MRCP given retained cardiac leads from prior cardiac procedure. HIDA scan showing no visualization of contrast into small bowel so choledocholithiasis could not be ascertained. Gallbladder showed up 90 minutes on HIDA suggesting chronic cholecystitis. Ultrasound today showing severe gallbladder wall thickening and dilated common bile duct. LFTs and t bili elevated today. Mild fever last night with Tmax of 38.0. t. bili 1.5 --> 3.1 AST 15 --> 290 ALT 20 --> 251 Alk 84 --> 281 Plan: Given elevations of LFTS and t.bili, GI consult for possible ERCP. He was downstairs obtaining HIDA scan when labs returned elevated. Ultrasound of gallbladder to further evaluate extent of cholecystitis and CBD Continue IV abx Continue NPO until GI's plans determined Continue medical management Will determine timing of cholecystectomy once GI's plans determined and if need for ERCP. Dr. Barbour has seen patient, agrees with above Addendum: Patient going for ERCP tomorrow morning at 7:15 am Plan for lap beatriz on clears today NPO after midnight monitor labs (2) Elevated LFTs: Plan as above Subjective still having some ruq/epigastric abdominal pain urine is dark yellow today had HIDA scan this morning, waiting for results Physical Exam Constitutional: WD/WN, vitals as above not ill appearing Respiratory: no respiratory distress Gastrointestinal (Abdomen): Inspection/Auscultation: abdomen not distended Percussion/Palpation: + abdomen tender (epigastric) and abdomen soft; no guarding and abdomen not rigid Psychiatric: A+Ox3, euthymic affect Results & Data Vital Signs (Past 12 Hours) Vital Signs Temp Pulse Resp BP Pulse Ox 03/14/19 07:51 36.8 C 55 L 16 104/62 95 Laboratory Results 03/14/19 03/14/19 03/14/19 Range/Units 07:28 07:28 07:28 WBC 7.36 (4.8-10.8) K/uL RBC 4.09 L (4.7-6.1) M/uL Hgb 13.0 L (14.0-18.0) g/dL Hct 37.3 L (42-52) % MCV 91.2 (80-100) fL MCH 31.8 (25-34) pg MCHC 34.9 (32-36) g/dL RDW Std Deviation 50.7 H (36.4-46.3) fL RDW Coeff of Michelle 15.1 H (11.5-14.5) % Plt Count 97 L (130-400) K/uL MPV 12.3 H (7.4-10.4) fL Sodium 139 (136-145) mmol/L Potassium 3.8 (3.5-5.1) mmol/L Chloride 107 (98-107) mmol/L Carbon Dioxide 26 (21-32) mmol/L Anion Gap 7.0 (3-11) BUN 18 (7-18) mg/dl Creatinine 1.11 (0.6-1.4) mg/dl Est Cr Clr Drug Dosing 67.5 ml/min Est GFR ( Amer) 76.5 Est GFR (Non-Af Amer) 66.0 BUN/Creatinine Ratio 15.9 (10-20) Glucose 101 H (70-99) mg/dl Calcium 8.1 L (8.5-10.1) mg/dl Total Bilirubin 3.1 H D (0.2-1) mg/dl AST 290 H (15-37) U/L ALT 351 H (12-78) U/L Alkaline Phosphatase 281 H D (45-117) U/L Total Protein 5.6 L D (6.4-8.2) gm/dl Albumin 2.5 L (3.4-5.0) gm/dl Globulin 3.1 (2.5-4.0) gm/dl Albumin/Globulin Ratio 0.8 L (0.9-2) Lipase 73 (73-393) U/L Hepatitis C Ab Screen Neg (Neg) Diagnostic Findings NM hepatobiliary CLINICAL HISTORY: 73 years-old Male presenting with elevated t. bili, abdominal pain for 3 days, possible common bile duct stone. TECHNIQUE: Immediately following the intravenous administration of 5.5 mCi Tc- 99m Choletec, dynamic anterior abdominal imaging was performed. No morphine administration was administered due to nonvisualization of the small bowel. 75 minute delayed anterior view was also obtained. COMPARISON: 03/13/2019. FINDINGS: Uniform hepatic tracer accumulation is shown. Delayed intrahepatic biliary excretion is seen. The common bile duct is visualized by 36-40 minutes. The gallbladder is visualized by 51-55 minutes. No radiotracer passage into the small bowel. IMPRESSION: 1. Patency of the common duct cannot be confirmed given lack of passage of radiotracer into the small bowel. Choledocholithiasis is not excluded. 2. Visualization of the gallbladder before 1 hour. No convincing evidence of acute cholecystitis. US abdomen limited CLINICAL HISTORY: 73 years-old Male presenting with acute cholecystitis, biliary gallbladder study. TECHNIQUE: Real-time grayscale and limited color Doppler ultrasound imaging of the abdomen limited to the right upper quadrant was performed. COMPARISON: CT from 03/13/2019. FINDINGS: Pancreas: Largely obscured due to overlying bowel gas. Liver: Normal echogenicity and echotexture. The liver measures 15.9 cm in maximal sagittal dimension. No sonographic evidence of hepatic mass. Main portal vein patent with normal directional flow. Biliary: No intrahepatic biliary ductal dilatation. Common bile duct measures up to 7 mm in diameter, which is mildly dilated. Gallbladder: Gallbladder distended with sludge and calculi. Pericholecystic fluid is noted with severe wall thickening of up to 1 cm. Sonographic Corrales's sign negative. Right kidney: Normal in appearance without evidence of hydronephrosis. Ascites: None. Other: None. IMPRESSION: 1. Despite the negative Corrales's sign, findings are highly suspicious for acute or chronic cholecystitis. HIDA scan findings from earlier today may favor chronic cholecystitis over acute. Surgical consultation is recommended. 2. Extrahepatic biliary ductal prominence could suggest choledocholithiasis.
--- NOTE | 2019-03-14 15:04 | Anesthesiology Consultation ---
Date of Service As per medicine note: EKG shows new T wave inversions in the inferior leads; patient denies cardiopulmonary complaints; had echo 03/03/2019 as an outpatient that demonstrated normal LVEF, no wall motion normalities; given this, patient likely does not need further cardiac work-up in the event he goes to the OR Assessment & Plan (1) Encounter for pre-operative examination: Chart Review Chart Review: Acceptable Risk for Surgery and Patient NOT seen in Pre Admission Testing Consults Requested none medicine is following History Surgery Operation Date: 03/15/19 07:15 Proposed Procedures p Endoscopic Retrograde Cholangiopancreatogram - Les Santos MD Height/Weight Height: 5 ft 10 in Weight: 88.7 kg Allergies Allergy/AdvReac Type Severity Reaction Status Date / Time No Known Allergies Allergy Unknown Verified 06/11/07 07:21 Medications Home Medications Medication Instructions Recorded Confirmed Last Taken ascorbic acid (vitamin C) [Vitamin 1,500 mg PO DAILY #0 06/13/07 03/13/19 U nknown C] multivitamin 1 tab PO DAILY #0 06/13/07 03/13/19 Unknown cholecalciferol (vitamin D3) 1,000 unit PO DAILY #0 05/20/10 03/13/19 Unknown [Vitamin D3] metoprolol tartrate 25 mg PO DAILY #0 11/05/10 03/13/19 03/12/19 Essential 90 Powder (Multivitamin) 1 dose PO DAILY 03/13/19 03/13/19 Unknown aspirin 81 mg PO DAILY 03/13/19 03/13/19 Unknown turmeric root extract 500 mg PO DAILY 03/13/19 03/13/19 Unknown zinc gluconate 50 mg PO DAILY 03/13/19 03/13/19 Unknown Active Medications Generic Name Dose Route Start Last Admin Trade Name Freq PRN Reason Stop Dose Admin Potassium Chloride/Sodium Chloride 20 meq in 1,000 mls @ 100 mls/hr 03/13/19 10:00 03/14/19 10:00 Normal Saline W/20 Meq Kcl IV 04/12/19 09:59 100 mls/hr .Q10H [facility] Infusion Piperacillin Sod/Tazobactam 115 mls @ 28.75 mls/hr 03/13/19 14:00 03/14/19 14:39 Sod 3.375 gm/ Dextrose IV 03/23/19 13:59 28.8 mls/hr Q8H [facility] Administration Protocol Metoprolol Tartrate 25 mg 03/13/19 10:00 03/14/19 08:41 Lopressor PO 04/12/19 09:59 Not Given DAILY [facility] Morphine Sulfate 3 mg 03/13/19 09:52 03/13/19 15:57 Morphine Sulfate IV 03/27/19 09:51 3 mg Q3H PRN Administration Pain Past Medical History Medical History Acute cholecystitis Lia's syndrome (Resolved) PVCs (premature ventricular contractions) (Chronic) Paroxysmal SVT (supraventricular tachycardia) (Chronic) Hypertension (Chronic) Postoperative atrial fibrillation (Resolved) Resolved, no further recurrences Prediabetes (Chronic) Dyslipidemia (Chronic) Past Family History Family History Mother Diabetes Past Surgical History Surgical History H/O atrial septal defect repair (Chronic) H/O inguinal hernia repair (Chronic) History of total right hip arthroplasty (Chronic) History of mitral valve repair (Chronic) Social History Smoking Status: Never smoker Do You Dip or Chew Tobacco: No Hx Alcohol Use: Yes Alcohol type: hard liquor alcohol intake frequency: 0-2 drinks per day Alcohol Intake Frequency Comment: on and off usage of alcohol Hx Substance Use: No Physical Exam Vital Signs Last Vital Signs Temp 36.8 C 03/14/19 07:51 Pulse 55 L 03/14/19 07:51 Resp 16 03/14/19 07:51 BP 104/62 03/14/19 07:51 Pulse Ox 95 03/14/19 07:51 Testing Laboratory Results 03/14/19 07:28 03/14/19 07:28 PT 11.8 Seconds (9.0-12.0) 03/13/19 07:25 INR 1.2 (0.9-1.1) H 03/13/19 07:25 APTT 31.1 Seconds (21.0-31.0) H 03/13/19 07:25 Hemoglobin A1c 5.7 % (4.5-5.6) H 03/13/19 07:25 Urine Color Yellow 03/13/19 12:15 Urine Appearance Clear (Clear) 03/13/19 12:15 Urine pH 5.0 (4.5-7.5) 03/13/19 12:15 Ur Specific [place] > 1.045 (1.000-1.030) H 03/13/19 12:15 Urine Protein 1+ (Negative) H 03/13/19 12:15 Urine Glucose (UA) Negative (Negative) 03/13/19 12:15 Urine Ketones Negative (Negative) 03/13/19 12:15 Urine Nitrite Negative (Negative) 03/13/19 12:15 Ur Leukocyte Esterase Negative (Negative) 03/13/19 12:15 Urine WBC (Auto) 1-5 /hpf (0-5) 03/13/19 12:15 Urine RBC (Auto) 0-4 /hpf (0-4) 03/13/19 12:15 U Hyaline Cast (Auto) 0 /lpf (0-5) 03/13/19 12:15 U Epithel Cells (Auto) 10-20 /lpf (0-5) H 03/13/19 12:15 Urine Bacteria (Auto) Negative (Negative) 03/13/19 12:15 Electrocardiogram Date: 03/14/19 Findings: + NSR @ (77) and + LA (inferior infarct) Normal sinus rhythm Inferior infarct , age undetermined Abnormal ECG When compared with ECG of 20-MAY-2010 15:12, Vent. rate has increased BY 25 BPM Inferior infarct is now Present T wave amplitude has decreased in Anterior leads Confirmed by Jacob Kimball ([id number]) on 03/13/2019 10:07:11 PM 25mm/s 10mm/mV 150Hz 9.0.8 12SL 241 OPAL: 13 Confirmed
--- NOTE | 2019-03-14 17:40 | Hospitalist Progress Note ---
Date of Service March 14, 2019 Assessment & Plan (1) Abdominal pain: (2) Acute cholecystitis: Patient presented with abdominal pain, intermittent since past 9 months however became more persistent 4 days prior to admission --CT ABD/pelvis showing distended gallbladder with considerable pericholecystic edematous change --HIDA:Patency of the common duct cannot be confirmed given lack of passage of radiotracer into the small bowel. Choledocholithiasis is not excluded. Visualization of the gallbladder before 1 hour. No convincing evidence of acute cholecystitis. --ABD USD:Despite the negative Corrales's sign, findings are highly suspicious for acute or chronic cholecystitis. HIDA scan findings from earlier today may favor chronic cholecystitis over acute. Surgical consultation is recommended. Extrahepatic biliary ductal prominence could suggest choledocholithiasis. The report will be called/faxed according to standard departmental protocol. --Elevated LFTs --Could have choledocholithiasis Plan for ERCP tomorrow N.p.o. after midnight Needs cholecystectomy eventually Continue IV fluids, IV antibiotics Monitor LFTs Appreciate GI/Surgery Input Pain control (3) Paroxysmal SVT (supraventricular tachycardia): (4) PVCs (premature ventricular contractions): No acute issues Continue beta-stas (5) DVT prophylaxis: SCDs Re: Planned for procedure Code Status Full Code Disposition: Expect to discharge home when stable Subjective Patient is seen and examined at bedside Abdominal pain slightly improved today LFTs elevated today Plan for ERCP tmw and cholecystectomy eventually Denies any chest pain, shortness of breath, dizziness, nausea Review of Systems Review of Systems: All systems reviewed & are unremarkable except as noted in HPI & below Physical Exam Physical Exam: Physical Exam: Vitals signs as noted above General Appearance:Moderately built and nourished, no apparent distress Head: normocephalic, Atraumatic Eyes: normal inspection, EOMI Neck: supple, Trachea midline Respiratory/Chest: Normal breath sounds, CTA Cardiovascular: S1, S2, No murmur Abdomen/GI:Soft, ,Mild tender RLQ, Epigastric , Bowel sounds present Extremities/Musculoskelatal:normal inspection, no edema Neurologic/Psych:AAOX3, grossly no focal neurological deficits Skin: normal color, warm Results & Data Vital Signs (Past 12 Hours) Vital Signs Temp Pulse Resp BP Pulse Ox 03/14/19 15:21 36.8 C 56 L 16 112/65 95 03/14/19 07:51 36.8 C 55 L 16 104/62 95 Laboratory Results Short CBC 03/14/19 Range/Units 07:28 WBC 7.36 (4.8-10.8) K/uL Hgb 13.0 L (14.0-18.0) g/dL Hct 37.3 L (42-52) % Plt Count 97 L (130-400) K/uL BMP 03/14/19 07:28 Sodium 139 Potassium 3.8 Chloride 107 Carbon Dioxide 26 BUN 18 Creatinine 1.11 Glucose 101 H Calcium 8.1 L Liver Function 03/14/19 Range/Units 07:28 Total Bilirubin 3.1 H D (0.2-1) mg/dl AST 290 H (15-37) U/L ALT 351 H (12-78) U/L Alkaline Phosphatase 281 H D (45-117) U/L Albumin 2.5 L (3.4-5.0) gm/dl
[2019-03-15] MEDS: NSS + 20MEQ KCL 20 MEQ/1,000 ML BAG IV SCH (03:51)
[2019-03-15 03:56] LABS: iSTAT Creatinine 1.1 mg/dl (0.6-1.3); iSTAT Hemoglobin 16.7 g/dl (14.0-18.0); iSTAT Ionized Calcium 1.16 mmol/l (1.12-1.32); iSTAT Potassium 3.7 mEq/L (3.3-5.0)
[2019-03-15] MEDS: PIPERACILLIN/TAZOBACTAM 3.375 GM in DEXTROSE 5% 100 ML IV SCH ×3 (05:07→21:14)
[2019-03-15] MEDS ORDERED: DEXAMETHASONE SOD INJ 4 MG/ML VIAL ONE (07:00)
[2019-03-15] MEDS ORDERED: MIDAZOLAM HCL 1 MG/ML 2ML VIAL ONE (07:00)
[2019-03-15] MEDS ORDERED: PROPOFOL IV EMULSION 10 MG/ML 20 ML VIAL IV ONE (07:00)
[2019-03-15] MEDS ORDERED: ROCURONIUM BROMIDE 10 MG/ML 5 ML VIAL ONE (07:00)
[2019-03-15] MEDS ORDERED: ONDANSETRON INJ 2 MG/ML 2 ML VIAL ONE (07:00)
[2019-03-15] MEDS ORDERED: fentaNYL citrate 100 MCG/2 ML VIAL ONE (07:00)
[2019-03-15] MEDS ORDERED: LIDOCAINE HCL 2% 2 ML VIAL/AMP(20MG/ML) INFIL ONE (07:00)
[2019-03-15] MEDS ORDERED: INDOMETHACIN 50 MG SUPP PR SCH (07:15)
--- NOTE | 2019-03-15 07:17 | History & Physical Bridge Note ---
Date of Service March 15, 2019 History & Physical Bridge Note I have examined the patient, reviewed the History & Physical and in the interval since the performance of the History & Physical I have noted the following changes of clinical significance: no changes noted
[2019-03-15] MEDS ORDERED: ATROPINE SULFATE 0.1 MG/ML 10ML SYR IV PRN (07:25)
[2019-03-15] MEDS ORDERED: KETOROLAC TROMETHAMINE 15 MG/ML VIAL IV PRN (07:25)
[2019-03-15] MEDS ORDERED: HYDROmorphone INJ 1 MG/ML SYRINGE IV PRN (07:25)
[2019-03-15] MEDS ORDERED: LABETALOL HCL IV 5 MG/ML 20ML IV PRN (07:25)
[2019-03-15] MEDS ORDERED: ONDANSETRON INJ 2 MG/ML 2 ML VIAL IV PRN (07:25)
[2019-03-15] MEDS ORDERED: PROMETHAZINE HCL 6.25 MG in SODIUM CHLORIDE 0.9% 50 ML IV PRN (07:25)
--- NOTE | 2019-03-15 08:10 | Operative Report ---
Post Operative Report Pre & Post Diagnosis Operation Date: 03/15/19 07:15 Pre-Op Diagnosis: (1) Abdominal pain (2) Acute cholecystitis Post-Op Diagnosis: (1) Common Bile Duct Stone (2) Abdominal pain (3) Acute cholecystitis Operation Date: 03/16/19 10:25 <No data on this case meets the specified criteria> Procedure Operation Date: 03/15/19 07:15 Actual Procedures p Endoscopic Retrograde Cholangiopancreatogram(Not Applicable) - Les Santos MD Operation Date: 03/16/19 10:25 <No data on this case meets the specified criteria> Surgeon Les Santos MD Rubber Tile Floor Layer None Estimated Blood Loss 0 Findings Consistent with Post-Op Diagnosis Specimens None Description of Procedure See Provation report I attest to the content of the Intraoperative Record and any orders documented therein. Any exceptions are noted below.
--- NOTE | 2019-03-15 08:28 | GI REPORT ---
Patient Name: Rob Gomez Procedure Date: 03/15/2019 7:23 AM Date of : 1945 Admit Type: Inpatient Age: 73 Gender: Male Attending MD: Les Santos MD Procedure: ERCP Providers: Les Santos MD Referring MD: Meño Nicole Md Indications: Abdominal pain of suspected biliary origin, Evaluation and possible treatment of bile duct stone(s), Jaundice Medicines: General Anesthesia, Indomethacin 100 mg OR Complications: No immediate complications. Estimated blood loss: None Estimated Blood Loss: Estimated blood loss: none. Procedure: Pre-Anesthesia Assessment: - Prior to the procedure, a History and Physical was performed, and patient medications, allergies and sensitivities were reviewed. The patient's tolerance of previous anesthesia was reviewed. - ASA Grade Assessment: III - A patient with severe systemic disease. After obtaining informed consent, the scope was passed under direct vision. Throughout the procedure, the patient's blood pressure, pulse, and oxygen saturations were monitored continuously. The Scope was introduced through the mouth, and advanced to the duodenum and used to inject contrast into the bile duct. The ERCP was accomplished with ease. The patient tolerated the procedure well. Findings: The violin mechanic film was normal. The esophagus was successfully intubated under direct vision without detailed examination of the pharynx, larynx, and associated structures, and upper GI tract. The upper GI tract was grossly normal. The major papilla was adjacent to a diverticulum. A Allovue Acrobat 0.035 inch guidewire was passed into the biliary tree through a Allovue Omni FS 35 sphincterotome. The sphincterotome was passed over the guidewire and the bile duct was then deeply cannulated. Contrast was injected. Choledocholithiasis was found in a nondilated duct. A 5 mm biliary sphincterotomy was made with a monofilament traction (standard) sphincterotome using ERBE electrocautery. There was no post-sphincterotomy bleeding. The biliary tree was swept with a 9 mm balloon starting at the bifurcation. All stones were removed. The total fluoroscopy exposure time was 1 minute and 44 seconds. Impression: - The major papilla was adjacent to a diverticulum. - Choledocholithiasis was found. Complete removal was accomplished by biliary sphincterotomy and balloon extraction. - A biliary sphincterotomy was performed. - The biliary tree was swept. Recommendation: - Surgical consultation for consideration of cholecystectomy as previously scheduled. - Return patient to [facility] for ongoing care. Les Santos M.D. Les Santos MD 03/15/2019 8:27:52 AM This report has been signed electronically. Note Initiated On: 03/15/2019 7:23 AM Number of Addenda: 0 I attest to the content of the Intraoperative Record and orders documented therein, exceptions below {[id number]}
--- NOTE | 2019-03-15 08:59 | Fluoroscopy Report ---
[place] ERCP biliary ductal CLINICAL HISTORY: ERCP TO BE DONE IN THE [facility].R. COMPARISON STUDY: Abdominal ultrasound 03/14/2019. FLUOROSCOPY TIME: 1 minute and 44 seconds. FINDINGS: 8 fluoroscopic spot images of the right upper quadrant. An endoscope is seen at the second portion of the duodenum. The ampulla is cannulated and contrast was injected into the common bile garo t. A balloon sweep was performed. IMPRESSION: Fluoroscopy provided for ERCP. Electronically signed by: Yuan Sinha M.D. 03/15/2019 8:58 AM
[2019-03-15] MEDS: METOPROLOL TARTRATE 25 MG TAB PO SCH (09:39)
[2019-03-15] MEDS: D5W AND LACTATED RINGERS 1,000 ML IV SCH ×2 (09:39→21:14)
[2019-03-15 10:00] LABS: Basophils # (auto) 0.01 K/uL (0-0.2); Basophils % (auto) 0.2 %; Eosinophils # (auto) 0.03 K/uL (0-0.5); Eosinophils % (auto) 0.6 %; Hematocrit (blood only) 37.3 % (42-52); Hemoglobin 12.7 g/dL (14.0-18.0); Immature Granulocytes # (auto) 0.04 K/uL (0.00-0.02); Immature Granulocytes % (auto) 0.8 %; Lymphocytes # (auto) 0.45 K/uL (1.2-3.4); Lymphocytes % (auto) 9.2 %; Mean Corpuscular Volume 92.3 fL (80-100); Mean Platelet Volume 11.9 fL (7.4-10.4); Monocytes # (auto) 0.39 K/uL (0.11-0.59); Neutrophils # (auto) 3.97 K/uL (1.4-6.5); Neutrophils % (auto) 81.2 %; Platelet Count 112 K/uL (130-400); RDW Coefficient of Variation 15.1 % (11.5-14.5); RDW Standard Deviation 51.5 fL (36.4-46.3); Red Blood Count 4.04 M/uL (4.7-6.1); White Blood Count 4.89 K/uL (4.8-10.8)
--- NOTE | 2019-03-15 10:14 | Anesthesiology Progress Note ---
Date of Service March 15, 2019 Anesthesia Post Procedure Vital Signs Vital Signs: Temp Pulse Pulse Resp BP BP Pulse Ox 03/15/19 09:49 52 H 127/67 96 03/15/19 09:23 36.6 C 52 L 18 118/63 98 03/15/19 09:00 36.8 C 52 L 12 129/63 98 03/15/19 08:50 51 L 10 L 125/63 98 03/15/19 08:40 56 L 14 132/63 98 03/15/19 08:30 53 L 21 119/67 97 03/15/19 08:20 36.4 C L 69 13 140/71 98 03/15/19 08:00 37 C 57 L 16 118/64 96 03/15/19 06:10 36.9 C 55 L 16 109/65 98 03/14/19 23:09 37.0 C 60 18 118/66 97 03/14/19 15:21 36.8 C 56 L 16 112/65 95 Pain Intensity Abdomen: Pain Intensity: 0 Transfer of Care Handoff Completed per policy Notes Mental Status: alert / awake / arousable Patient Amnestic to Procedure: Yes Nausea / Vomiting: adequately controlled Pain: adequately controlled Airway Patency, RR, SpO2: stable & adequate BP & HR: stable & adequate Hydration State: stable & adequate Anesthetic Complications: no major complications apparent
[2019-03-15 10:24] LABS: Albumin Level 2.6 gm/dl (3.4-5.0); BUN Creatinine Ratio 13.1 (10-20); Calcium 8.4 mg/dl (8.5-10.1); Creatinine Clr Calc Pharmacy 72.7 ml/min; Est GFR (African American) 83.7; Est GFR (Non-African American) 72.2; Potassium 4.3 mmol/L (3.5-5.1)
[2019-03-15 10:30] LABS: Albumin Globulin Ratio 0.8 (0.9-2); Bilirubin,Total 1.9 mg/dl (0.2-1); Globulin 3.1 gm/dl (2.5-4.0); Total Protein 5.7 gm/dl (6.4-8.2)
--- NOTE | 2019-03-15 10:38 | Surgery Progress Note ---
Date of Service S/P ERCP, pt is doing fine, no abdominal pain, no nausea, no vomiting, March 15, 2019 Assessment & Plan (1) Acute cholecystitis: CT scan with pericholecystic fluid and edema consistent with acute cholecystitis. Elevated leukocytosis on admission of 18K. LFTS within normal limits however t. bili was slightly elevated at 1.5. Unable to obtain MRCP given retained cardiac leads from prior cardiac procedure. HIDA scan showing no visualization of contrast into small bowel so choledocholithiasis could not be ascertained. Gallbladder showed up 90 minutes on HIDA suggesting chronic cholecystitis. Ultrasound today showing severe gallbladder wall thickening and dilated common bile duct. LFTs and t bili elevated today. Mild fever last night with Tmax of 38.0. t. bili 1.5 --> 3.1 AST 15 --> 290 ALT 20 --> 251 Alk 84 --> 281 Plan: Given elevations of LFTS and t.bili, GI consult for possible ERCP. He was downstairs obtaining HIDA scan when labs returned elevated. Ultrasound of gallbladder to further evaluate extent of cholecystitis and CBD Continue IV abx Continue NPO until GI's plans determined Continue medical management Will determine timing of cholecystectomy once GI's plans determined and if need for ERCP. Dr. Barbour has seen patient, agrees with above Addendum: Patient going for ERCP tomorrow morning at 7:15 am Plan for lap beatriz on clears today NPO after midnight monitor labs 03/15/2019 10:35am I recommend to do laparoscopic cholecystectomy, possible open or cholangiogram tomorrow at 10:25am, D/W benefits, risks and alternatives of the surgery, the risks - infection, bleeding, injury CBD, bowel, DVT, CO, stroke, , pt und erstood, he agrees with the surgery, I answered all questions, (2) Elevated LFTs: Plan as above Subjective Patient is seen and examined at bedside Abdominal pain slightly improved today LFTs elevated today Plan for ERCP tmw and cholecystectomy eventually Denies any chest pain, shortness of breath, dizziness, nausea Physical Exam Constitutional: WD/WN, vitals as above well developed and well nourished Neck: trachea midline, no thyromegaly Respiratory: normal respiratory effort, lungs clear to auscultation Cardiovascular: RRR, no murmur, no edema Rate/Rhythm: regular rate and regular rhythm Gastrointestinal (Abdomen): normal bowel sounds, soft, nontender, no hepat osplenomegaly Percussion/Palpation: abdomen soft Musculoskeletal: no cyanosis or clubbing, extremities motor strength 5/5 Neurologic: awake Psychiatric: Orientation: alert and oriented x 3 Results & Data Vital Signs (Past 12 Hours) Vital Signs Temp Pulse Pulse Resp BP BP Pulse Ox 03/15/19 10:19 54 L 16 122/60 94 03/15/19 09:49 52 H 127/67 96 03/15/19 09:23 36.6 C 52 L 18 118/63 98 03/15/19 09:00 36.8 C 52 L 12 129/63 98 03/15/19 08:50 51 L 10 L 125/63 98 03/15/19 08:40 56 L 14 132/63 98 03/15/19 08:30 53 L 21 119/67 97 03/15/19 08:20 36.4 C L 69 13 140/71 98 03/15/19 08:00 37 C 57 L 16 118/64 96 03/15/19 06:10 36.9 C 55 L 16 109/65 98 03/14/19 23:09 37.0 C 60 18 118/66 97 Laboratory Results Abnormal lab results 03/13/19 03/15/19 03/15/19 Range/Units 07:33 09:49 09:49 RBC 4.04 L (4.7-6.1) M/uL Hgb 12.7 L (14.0-18.0) g/dL Hct 37.3 L (42-52) % RDW Std Deviation 51.5 H (36.4-46.3) fL RDW Coeff of Michelle 15.1 H (11.5-14.5) % Plt Count 112 L (130-400) K/uL MPV 11.9 H (7.4-10.4) fL Immature Gran # (Auto) 0.04 H (0.00-0.02) K/uL Lymph # (Auto) 0.45 L (1.2-3.4) K/uL POC Sodium 134 L (135-144) mEq/L POC Chloride 98 L (101-112) mEq/L Chloride 109 H (98-107) mmol/L POC Total CO2 23 L (24-31) mEq/l Glucose 124 H (70-99) mg/dl POC Glucose (other) 135 H (70-99) mg/dl Calcium 8.4 L (8.5-10.1) mg/dl Total Bilirubin 1.9 H (0.2-1) mg/dl AST 120 H (15-37) U/L ALT 244 H (12-78) U/L Alkaline Phosphatase 280 H (45-117) U/L Total Protein 5.7 L (6.4-8.2) gm/dl Albumin 2.6 L (3.4-5.0) gm/dl Albumin/Globulin Ratio 0.8 L (0.9-2)
[2019-03-15 10:40] LABS: Echinocytes 1+; Platelet Estimate Normal (Normal)
--- NOTE | 2019-03-15 17:14 | Anesthesiology Consultation ---
Date of Service March 15, 2019 Assessment & Plan (1) Encounter for pre-operative examination: Chart Review Chart Review: Acceptable Risk for Surgery and Patient NOT seen in Pre Admission Testing Consults Requested none Additional Notes Pt tolerated ERCP today without apparent anesthetic complications and is now scheduled for lap beatriz tomorrow. History Surgery Operation Date: 03/15/19 07:15 Proposed Procedures p Endoscopic Retrograde Cholangiopancreatogram - Les Santos MD Operation Date: 03/16/19 10:25 Proposed Procedures p Laparoscopic Cholecystectomy - Toby Barbour MD Height/Weight Height: 5 ft 10 in Weight: 88.7 kg Allergies Allergy/AdvReac Type Severity Reaction Status Date / Time No Known Allergies Allergy Unknown Verified 06/11/07 07:21 Medications Home Medications Medication Instructions Recorded Confirmed Last Taken ascorbic acid (vitamin C) [Vitamin 1,500 mg PO DAILY #0 06/13/07 03/13/19 Unknown C] multivitamin 1 tab PO DAILY #0 06/13/07 03/13/19 Unknown cholecalciferol (vitamin D3) 1,000 unit PO DAILY #0 05/20/10 03/13/19 Unknown [Vitamin D3] metoprolol tartrate 25 mg PO DAILY #0 11/05/10 03/13/19 03/12/19 Essential 90 Powder (Multivitamin) 1 dose PO DAILY 03/13/19 03/13/19 Unknown aspirin 81 mg PO DAILY 03/13/19 03/13/19 Unknown turmeric root extract 500 mg PO DAILY 03/13/19 03/13/19 Unknown zinc gluconate 50 mg PO DAILY 03/13/19 03/13/19 Unknown Active Medications Generic Name Dose Route Start Last Admin Trade Name Freq PRN Reason Stop Dose Admin Piperacillin Sod/Tazobactam 115 mls @ 28.75 mls/hr 03/13/19 14:00 03/15/19 14:49 Sod 3.375 gm/ Dextrose IV 03/23/19 13:59 28.8 mls/hr Q8H [facility] Administration Protocol Dextrose/Lactated Ringer's 1,000 mls @ 80 mls/hr 03/15/19 08:15 03/15/19 10:33 D5w And Lactated Ringers IV 04/14/19 08:14 80 mls/hr .[id number] [facility] Infusion Indomethacin 100 mg 03/15/19 07:15 08/14/19 08:02 Indocin NC 03/15/19 18:00 100 mg TODAY@0715 [facility] Administration Metoprolol Tartrate 25 mg 03/13/19 10:00 03/15/19 09:39 Lopressor PO 04/12/19 09:59 Not Given DAILY [facility] Morphine Sulfate 3 mg 03/13/19 09:52 03/13/19 15:57 Morphine Sulfate IV 03/27/19 09:51 3 mg Q3H PRN Administration Pain NPO Date Last Intake of Fluids: 03/14/19 Time Last Intake of Fluids: 22:00 Date Last Intake of Solids: 03/14/19 Time Last Intake of Solids: 18:00 Past Medical History Medical History Acute cholecystitis Lia's syndrome (Resolved) PVCs (premature ventricular contractions) (Chronic) Paroxysmal SVT (supraventricular tachycardia) (Chronic) Hypertension (Chronic) Postoperative atrial fibrillation (Resolved) Resolved, no further recurrences Prediabetes (Chronic) Dyslipidemia (Chronic) Past Family History Family History Mother Diabetes Past Surgical History Surgical History H/O atrial septal defect repair (Chronic) H/O inguinal hernia repair (Chronic) History of total right hip arthroplasty (Chronic) History of mitral valve repair (Chronic) History of ERCP Social History Smoking Status: Never smoker Do You Dip or Chew Tobacco: No Hx Alcohol Use: Yes Alcohol type: hard liquor alcohol intake frequency: 0-2 drinks per day Alcohol Intake Frequency Comment: on and off usage of alcohol Hx Substance Use: No Physical Exam Vital Signs Last Vital Signs Temp 36.6 C 03/15/19 15:06 Pulse 54 L 03/15/19 15:06 Resp 14 03/15/19 15:06 BP 104/63 03/15/19 15:06 Pulse Ox 95 03/15/19 15:06 Testing Laboratory Results 03/15/19 09:49 03/15/19 09:49 PT 11.8 Seconds (9.0-12.0) 03/13/19 07:25 INR 1.2 (0.9-1.1) H 03/13/19 07:25 APTT 31.1 Seconds (21.0-31.0) H 03/13/19 07:25 Hemoglobin A1c 5.7 % (4.5-5.6) H 03/13/19 07:25 Urine Color Yellow 03/13/19 12:15 Urine Appearance Clear (Clear) 03/13/19 12:15 Urine pH 5.0 (4.5-7.5) 03/13/19 12:15 Ur Specific Carlton > 1.045 (1.000-1.030) H 03/13/19 12:15 Urine Protein 1+ (Negative) H 03/13/19 12:15 Urine Glucose (UA) Negative (Negative) 03/13/19 12:15 Urine Ketones Negative (Negative) 03/13/19 12:15 Urine Nitrite Negative (Negative) 03/13/19 12:15 Ur Leukocyte Esterase Negative (Negative) 03/13/19 12:15 Urine WBC (Auto) 1-5 /hpf (0-5) 03/13/19 12:15 Urine RBC (Auto) 0-4 /hpf (0-4) 03/13/19 12:15 U Hyaline Cast (Auto) 0 /lpf (0-5) 03/13/19 12:15 U Epithel Cells (Auto) 10-20 /lpf (0-5) H 03/13/19 12:15 Urine Bacteria (Auto) Negative (Negative) 03/13/19 12:15 Electrocardiogram Date: 03/14/19 Findings: + NSR @ (77) and + VA (inferior infarct) Normal sinus rhythm Inferior infarct , age undetermined Abnormal ECG When compared with ECG of 20-MAY-2010 15:12, Vent. rate has increased BY 25 BPM Inf erior infarct is now Present T wave amplitude has decreased in Anterior leads Confirmed by Jacob Kimball ([id number]) on 03/13/2019 10:07:11 PM 25mm/s 10mm/mV 150Hz 9.0.8 12SL 241 OPAL: 13 Confirmed
--- NOTE | 2019-03-15 18:48 | Hospitalist Progress Note ---
Date of Service March 15, 2019 Assessment & Plan (1) Abdominal pain: (2) Acute cholecystitis: Patient presented with abdominal pain, intermittent since past 9 months however became more persistent 4 days prior to admission --CT ABD/pelvis showing distended gallbladder with considerable pericholecystic edematous change --HIDA:Patency of the common duct cannot be confirmed given lack of passage of radiotracer into the small bowel. Choledocholithiasis is not excluded. Visualization of the gallbladder before 1 hour. No convincing evidence of acute cholecystitis. --ABD USD:Despite the negative Corrales's sign, findings are highly suspicious for acute or chronic cholecystitis. HIDA scan findings from earlier today may favor chronic cholecystitis over acute. Surgical consultation is recommended. Extrahepatic biliary ductal prominence could suggest choledocholithiasis. The report will be called/faxed according to standard departmental protocol. --Elevated LFTs -Choledocholithiasis S/P ERCP: The major papilla was adjacent to a diverticulum. Choledocholithiasis was found. Complete removal was accomplished by biliary sphincterotomy and balloon extraction. A biliary sphincterotomy was performed. The biliary tree was swept. N.p.o. after midnight Planned for cholecystectomy tomorrow Continue IV fluids, IV antibiotics Monitor LFTs Appreciate GI/Surgery Input Pain control (3) Paroxysmal SVT (supraventricular tachycardia): (4) PVCs (premature ventricular contractions): No acute issues Continue beta-stas (5) DVT prophylaxis: SCDs Re: Planned for procedure Code Status Full Code Disposition: Expect to discharge home when stable Subjective Patient is seen and examined at bedside Had ERCP earlier today Abdominal pain resolved Denies any chest pain, shortness of breath, dizziness, nausea No other complaints Plan for cholecystectomy tomorrow Review of Systems Review of Systems: All systems reviewed & are unremarkable except as noted in HPI & below Physical Exam Physical Exam: Physical Exam: Vitals signs as noted above General Appearance:Moderately built and nourished, no apparent distress Head: normocephalic, Atraumatic Eyes: normal inspection, EOMI, +Icteric Neck: supple, Trachea midline Respiratory/Chest: Normal breath sounds, CTA Cardiovascular: S1, S2, No murmur Abdomen/GI:Soft, ,Non tender, Bowel sounds present Extremities/Musculoskelatal:normal inspection, no edema Neurologic/Psych:AAOX3, grossly no focal neurological deficits Skin: normal color, warm Results & Data Vital Signs (Past 12 Hours) Vital Signs Temp Pulse Pulse Pulse Resp BP Pulse Ox 03/15/19 15:06 36.6 C 54 L 14 104/63 95 03/15/19 11:25 58 L 16 117/68 96 03/15/19 10:19 54 L 16 122/60 94 03/15/19 09:49 52 H 127/67 96 03/15/19 09:23 36.6 C 52 L 18 118/63 98 03/15/19 09:00 36.8 C 52 L 12 129/63 98 03/15/19 08:50 51 L 10 L 125/63 98 03/15/19 08:40 56 L 14 132/63 98 03/15/19 08:30 53 L 21 119/67 97 03/15/19 08:20 36.4 C L 69 13 140/71 98 03/15/19 08:00 37 C 57 L 16 118/64 96 Laboratory Results Short CBC 03/15/19 Range/Units 09:49 WBC 4.89 (4.8-10.8) K/uL Hgb 12.7 L (14.0-18.0) g/dL Hct 37.3 L (42-52) % Plt Count 112 L (130-400) K/uL BMP 03/15/19 09:49 Sodium 141 Potassium 4.3 Chloride 109 H Carbon Dioxide 23 BUN 14 Creatinine 1.03 Glucose 124 H Calcium 8.4 L Liver Function 03/15/19 Range/Units 09:49 Total Bilirubin 1.9 H (0.2-1) mg/dl AST 120 H (15-37) U/L ALT 244 H (12-78) U/L Alkaline Phosphatase 280 H (45-117) U/L Albumin 2.6 L (3.4-5.0) gm/dl
[2019-03-16] MEDS: D5W AND LACTATED RINGERS 1,000 ML IV SCH ×2 (04:58→13:21)
[2019-03-16] MEDS: PIPERACILLIN/TAZOBACTAM 3.375 GM in DEXTROSE 5% 100 ML IV SCH ×3 (05:36→21:33)
[2019-03-16] MEDS: METOPROLOL TARTRATE 25 MG TAB PO SCH (08:03)
[2019-03-16 08:25] LABS: Hematocrit (blood only) 34.9 % (42-52); Hemoglobin 11.9 g/dL (14.0-18.0); Mean Corpuscular Hgb Conc 34.1 g/dL (32-36); Mean Corpuscular Volume 90.9 fL (80-100); Mean Platelet Volume 12.3 fL (7.4-10.4); Platelet Count 133 K/uL (130-400); RDW Coefficient of Variation 14.9 % (11.5-14.5); RDW Standard Deviation 49.5 fL (36.4-46.3); Red Blood Count 3.84 M/uL (4.7-6.1); White Blood Count 5.21 K/uL (4.8-10.8)
[2019-03-16 08:56] LABS: Albumin Level 2.5 gm/dl (3.4-5.0); BUN Creatinine Ratio 10.6 (10-20); Bilirubin Direct 0.4 mg/dl (0-0.2); Bilirubin,Total 1.2 mg/dl (0.2-1); Calcium 8.2 mg/dl (8.5-10.1); Creatinine Clr Calc Pharmacy 75.6 ml/min; Est GFR (African American) 87.8; Est GFR (Non-African American) 75.8; Potassium 3.4 mmol/L (3.5-5.1); Total Protein 5.6 gm/dl (6.4-8.2)
[2019-03-16] MEDS ORDERED: BUPIVACAINE 0.5 % 5 MG/1 ML MPF 30ML VIAL ONE (09:06)
[2019-03-16] MEDS ORDERED: BACITRACIN OINT 15 GM TUBE ONE (09:06)
[2019-03-16] MEDS ORDERED: LIDOCAINE HCL 1% 20 ML VIAL ONE (09:06)
[2019-03-16] MEDS ORDERED: NEOSTIGMINE METHYLSULFATE 5 MG/5 ML SYR ONE (09:09)
[2019-03-16] MEDS ORDERED: DEXAMETHASONE SOD INJ 4 MG/ML VIAL ONE (09:09)
[2019-03-16] MEDS ORDERED: GLYCOPYRROLATE 0.2 MG/ML VIAL ONE (09:09)
[2019-03-16] MEDS ORDERED: LIDOCAINE HCL 2% 2 ML VIAL/AMP(20MG/ML) INFIL ONE (09:09)
[2019-03-16] MEDS ORDERED: PROPOFOL IV EMULSION 10 MG/ML 20 ML VIAL IV ONE (09:09)
[2019-03-16] MEDS ORDERED: ONDANSETRON INJ 2 MG/ML 2 ML VIAL ONE (09:09)
[2019-03-16] MEDS ORDERED: MIDAZOLAM HCL 1 MG/ML 2ML VIAL ONE (09:10)
[2019-03-16] MEDS ORDERED: fentaNYL citrate 100 MCG/2 ML VIAL ONE ×2 (09:10→11:51)
--- NOTE | 2019-03-16 09:36 | History & Physical Bridge Note ---
Date of Service March 16, 2019 History & Physical Bridge Note I have examined the patient, reviewed the History & Physical and in the interval since the performance of the History & Physical I have noted the following changes of clinical significance: no changes noted Supervising Physician Co-Signing Physician Notes I have seen and examined the patient with MARIANO Troy. PE- well nourished male in nad, abd - soft nt nd +bs Labs reviewed HIDA reviewed Agree with further assessment and plan per Jasper's note - ERCP tomorrow morning at 7:15 am.
[2019-03-16] MEDS ORDERED: CEFAZOLIN 2,000 MG/15 ML IV PUSH IV ONE (09:38)
[2019-03-16] MEDS ORDERED: CEFAZOLIN 2000MG 2,000 MG/15 ML SYR IV SCH (09:45)
[2019-03-16] MEDS ORDERED: fentaNYL citrate 100 MCG/2 ML VIAL IV PRN (10:08)
[2019-03-16] MEDS ORDERED: HYDROmorphone INJ 1 MG/ML SYRINGE IV PRN (10:08)
[2019-03-16] MEDS ORDERED: ATROPINE SULFATE 0.1 MG/ML 10ML SYR IV PRN (10:08)
[2019-03-16] MEDS ORDERED: LABETALOL HCL IV 5 MG/ML 20ML IV PRN (10:08)
[2019-03-16] MEDS ORDERED: PHENYLEPHRINE 100MCG/ML 5ML SYR IV PRN (10:08)
[2019-03-16] MEDS ORDERED: MEPERIDINE HCL 25 MG/ML CARP IV PRN (10:08)
[2019-03-16] MEDS ORDERED: ePHEDrine sulfate 50 MG/ML AMP IV PRN (10:08)
[2019-03-16] MEDS ORDERED: ONDANSETRON INJ 2 MG/ML 2 ML VIAL IV PRN (10:08)
--- NOTE | 2019-03-16 12:09 | Post Operative Brief Note ---
Immediate Post Op Note v1 Date of Surgery March 16, 2019 Pre & Post Diagnosis Operation Date: 03/15/19 07:15 Pre-Op Diagnosis: (1) Abdominal pain (2) Acute cholecystitis Post-Op Diagnosis: (1) Common Bile Duct Stones (2) Abdominal pain (3) Acute cholecystitis Operation Date: 03/16/19 10:25 Pre-Op Diagnosis: Acute Cholecystitis Post-Op Diagnosis: Acute Cholecystitis, gangrenous gallbladder Procedure Operation Date: 03/15/19 07:15 Actual Procedures p Endoscopic Retrograde Cholangiopancreatogram(Not Applicable) - Les Santos MD Operation Date: 03/16/19 10:25 Actual Procedures p Laparoscopic Cholecystectomy - Toby Barbour MD Surgeon Toby Barbour MD Land Surveying Manager Nara Colindres. PA Estimated Blood Loss 100 Findings Consistent with Post-Op Diagnosis significant inflammation gallbladder wall with gangrenous gallbladder Fluids 1100ml Specimens gallbladder Drains Segun-Sylvester Drain (10mm flat) Anesthesia Type General Complications none Disposition Accompanied Patient To Recovery: Yes Disposition: Recovery Room Overlapping Procedure I was immediately available: during the entire case.
--- NOTE | 2019-03-16 12:47 | Anesthesiology Progress Note ---
Date of Service March 16, 2019 Anesthesia Post Procedure Vital Signs Vital Signs: Temp Pulse Pulse Pulse Resp BP BP 03/16/19 12:45 60 16 155/78 H 03/16/19 12:35 57 L 16 164/78 H 03/16/19 12:29 36.8 C 63 12 172/85 H 03/16/19 09:39 36.6 C 57 L 20 151/81 H 03/16/19 07:00 36.8 C 58 L 18 126/64 03/16/19 04:51 36.9 C 49 L 16 108/62 03/15/19 23:11 36.7 C 51 L 16 114/64 98/49 L 03/15/19 19:02 36.7 C 51 L 18 111/66 03/15/19 15:06 36.6 C 54 L 14 104/63 Pulse Ox 03/16/19 12:45 99 03/16/19 12:35 97 03/16/19 12:29 98 03/16/19 09:39 98 03/16/19 07:00 94 03/16/19 04:51 98 03/15/19 23:11 95 03/15/19 19:02 95 03/15/19 15:06 95 Pain Intensity Abdomen: Pain Intensity: 0 Transfer of Care Handoff Completed per policy Notes Mental Status: alert / awake / arousable Patient Amnestic to Procedure: Yes Nausea / Vomiting: adequately controlled Pain: adequately controlled Airway Patency, RR, SpO2: stable & adequate BP & HR: stable & adequate Hydration State: stable & adequate Anesthetic Complications: no major complications apparent and Pt Satisfied with anesthetic care
[2019-03-16] MEDS ORDERED: OXYCODONE/ACETAMINOPHEN 5mg/325mg TAB PO PRN (13:15)
--- NOTE | 2019-03-16 13:46 | Operative Report ---
DATE OF OPERATION: 03/16/2019 PREOPERATIVE DIAGNOSES: Acute cholecystitis, cholelithiasis. POSTOPERATIVE DIAGNOSES: Acute cholecystitis, cholelithiasis, gangrenous gallbladder. OPERATION: Laparoscopic cholecystectomy. SURGEON: Toby Barbour MD. NON PROFIT JOB TITLES: Nara Colindres PA-C. ANESTHESIA: General. ESTIMATED BLOOD LOSS: About 100 mL. FINDINGS: Acute cholecystitis, gangrenous gallbladder, significant inflammation on the gallbladder wall. COMPLICATIONS: None. INDICATIONS FOR THE PROCEDURE: This is a 73-year-old gentleman who was admitted to hospital for acute cholecystitis with common bile duct stone. The patient had an ERCP done yesterday and patient will be required to do laparoscopic cholecystectomy, possible open, possible cholangiogram. I did talk to the patient about the benefit and risk, alternate procedure. I indicated the risks may include but not limited such as bleeding, infection, injury to common bile duct, bile leak, injury to the bowel, incisional hernia, myocardial infarction, DVT, stroke or even . The patient understands. He signed informed consent and I answered all questions. DETAILS OF PROCEDURE: We brought the patient to the OR, put the patient in the supine position. The patient received SCD on bilateral legs to prevent DVT. Also, patient received 2 grams Ancef IV for prophylactic antibiotic. The patient received general anesthesia without difficulty. The abdomen was appropriately draped in routine sterile fashion. After time out, I injected local anesthesia by using 1% lidocaine mixed with 0.5% Marcaine around the umbilicus, then I made a small incision just above umbilicus, opened fascia and opened peritoneum and under direct vision, put a Lakeisha trocar in, connected to CO2 to create pneumoperitoneum. Flow rate was 6 liter per minute. Pressure not more than 14 mmHg. Once we got a nice pneumoperitoneum, we put the camera in, looked around the abdomen shows normal finding on the liver. However, the gallbladder showed significant inflammation on the gallbladder wall; gallbladder wall thickening and edema with focal gangrene. Once confirmed diagnosis of acute cholecystitis, then we put another two 5 mm trocar on the right upper quadrant, one is 11 trocar on the epigastric area. Once all trocars in, we put a grasper and hold the gallbladder. We peeled out all omental covers of the gallbladder, wall inflammation on the gallbladder wall. Then we used another grasper to hold the pouch of gallbladder, put latter to expunge triangle of Calot. The cystic duct was identified and mobilized. I put two 10 mm metal clips on the proximal cystic duct, one on the distal cystic duct, then used a scissor for transection of cystic duct. Rechecked, no bile leak and the cystic artery was identified and mobilized. I put two 5 mm metal clips on the proximal cystic artery, 1 on the distal cystic artery, and used a scissor for transection of cystic artery. Rechecked, no active bleeding. Then we used the Bovie to take down gallbladder from the liver bed. After removal of gallbladder, we rechecked the liver bed, no active bleeding, no bile leak and we removed the gallbladder through the catch bag then we reinserted Lakeisha trocar in, connected to CO2 to create pneumoperitoneum, again looked around the liver bed. No active bleeding, no bile leak. Based on the significant inflammation on the gallbladder, we decided to put one 10 mm HOMAR drainage in through the 5 mm trocar site. Then we used 2-0 silk to fix the HOMAR on the skin. Then we removed all trocar under direct vision. No active bleeding from the trocar sites. Pneumoperitoneum was released. I closed the umbilical fascial layer by [id number] x4 by using the #1 Vicryl, closed subcutaneous layer by using 2-0 Vicryl interrupted, closed skin by using 4-0 Vicryl continuous running, closed the 11 trocar site fascial layer by using #1 Vicryl [id number] x2 subcutaneous layer by using 2-0 Vicryl interrupted and closed skin by using 4-0 Vicryl interrupted. Closed another 5 mm trocar site skin only by using 4-0 Vicryl then we put the dressing on. The patient tolerated the procedure well. All instrument, needle and sponge count were correct x2 at the end of the case. The patient transferred to recovery room in stable condition. After procedure, I did talk to the patient about the OR finding and procedure we did and the specimen sent to pathology. I attest to the content of the Intraoperative Record and any orders documented therein. Any exceptions are noted below. CHARLI
[2019-03-16] MEDS ORDERED: POLYETHYLENE (MIRALAX) 17 GM PACK PO PRN (15:43)
[2019-03-16] MEDS ORDERED: POTASSIUM CHLORIDE 10 MEQ TABCR PO ONE (16:00)
--- NOTE | 2019-03-16 17:54 | Hospitalist Progress Note ---
Date of Service March 16, 2019 Assessment & Plan (1) Abdominal pain: (2) Acute cholecystitis: Patient presented with abdominal pain, intermittent since past 9 months however became more persistent 4 days prior to admission --CT ABD/pelvis showing distended gallbladder with considerable pericholecystic edematous change --HIDA:Patency of the common duct cannot be confirmed given lack of passage of radiotracer into the small bowel. Choledocholithiasis is not excluded. Visualization of the gallbladder before 1 hour. No convincing evidence of acute cholecystitis. --ABD USD:Despite the negative Corrales's sign, findings are highly suspicious for acute or chronic cholecystitis. HIDA scan findings from earlier today may favor chronic cholecystitis over acute. Surgical consultation is recommended. Extrahepatic biliary ductal prominence could suggest choledocholithiasis. The report will be called/faxed according to standard departmental protocol. --Elevated LFTs -Choledocholithiasis S/P ERCP: The major papilla was adjacent to a diverticulum. Choledocholithiasis was found. Complete removal was accomplished by biliary sphincterotomy and balloon extraction. A biliary sphincterotomy was performed. The biliary tree was swept. S/P laparoscopic cholecystectomy POD #0 Continue IV fluids, IV antibiotics Monitor LFTs Appreciate GI/Surgery Input Pain control Urinary Retention Straight Cath PRN monitor (3) Paroxysmal SVT (supraventricular tachycardia): (4) PVCs (premature ventricular contractions): No acute issues Continue beta-stas (5) DVT prophylaxis: SCDs for now Code Status Full Code Disposition: Expect to discharge home when stable Subjective Patient is seen and examined at bedside Had laparoscopic cholecystectomy today Reports urinary retention. Abdominal pain is controlled Denies any chest pain, shortness of breath, dizziness, nausea No other complaints Review of Systems Review of Systems: All systems reviewed & are unremarkable except as noted in HPI & below Physical Exam 2 Physical Exam: Physical Exam: Vitals signs as noted above General Appearance:Moderately built and nourished, no apparent distress Head: normocephalic, Atraumatic Eyes: normal inspection, EOMI, +Icteric Neck: supple, Trachea midline Respiratory/Chest: Normal breath sounds, CTA Cardiovascular: S1, S2, No murmur Abdomen/GI:Soft, , mild tender, +Surgical scars in dressing, + drain, Bowel sounds present Extremities/Musculoskelatal:normal inspection, no edema Neurologic/Psych:AAOX3, grossly no focal neurological deficits Skin: normal color, warm Results & Data Vital Signs (Past 12 Hours) Vital Signs Temp Pulse Pulse Pulse Resp BP Pulse Ox 03/16/19 16:21 36.4 C L 59 L 14 153/80 H 97 03/16/19 14:58 36.6 C 55 L 14 145/70 H 97 03/16/19 14:44 36.5 C 60 16 154/82 H 97 03/16/19 13:59 36.7 C 58 L 16 170/58 H 95 03/16/19 13:19 36.7 C 62 18 163/79 H 93 03/16/19 12:55 36.5 C 59 L 16 158/77 H 96 03/16/19 12:45 60 16 155/78 H 99 03/16/19 12:35 57 L 16 164/78 H 97 03/16/19 12:29 36.8 C 63 12 172/85 H 98 03/16/19 09:39 36.6 C 57 L 20 151/81 H 98 03/16/19 07:00 36.8 C 58 L 18 126/64 94 Laboratory Results Short CBC 03/16/19 Range/Units 08:02 WBC 5.21 (4.8-10.8) K/uL Hgb 11.9 L (14.0-18.0) g/dL Hct 34.9 L (42-52) % Plt Count 133 (130-400) K/uL BMP 03/16/19 08:02 Sodium 141 Potassium 3.4 L D Chloride 110 H Carbon Dioxide 24 BUN 11 Creatinine 0.99 Glucose 124 H Calcium 8.2 L Liver Function 03/16/19 Range/Units 08:02 Total Bilirubin 1.2 H (0.2-1) mg/dl Direct Bilirubin 0.4 H (0-0.2) mg/dl AST 50 H (15-37) U/L ALT 173 H (12-78) U/L Alkaline Phosphatase 244 H (45-117) U/L Albumin 2.5 L (3.4-5.0) gm/dl
[2019-03-16] MEDS: DOCUSATE SODIUM 100 MG CAP PO SCH (21:32)
[2019-03-16] MEDS: MoRPHine SULFATE 4 MG/ML 1 ML CARP\\VIAL IV PRN (23:20)
[2019-03-17] MEDS: D5W AND LACTATED RINGERS 1,000 ML IV SCH ×2 (01:08→13:38)
[2019-03-17] MEDS: PIPERACILLIN/TAZOBACTAM 3.375 GM in DEXTROSE 5% 100 ML IV SCH ×3 (05:50→21:29)
[2019-03-17 07:18] LABS: Hematocrit (blood only) 31.3 % (42-52); Hemoglobin 10.6 g/dL (14.0-18.0); Mean Corpuscular Hgb Conc 33.9 g/dL (32-36); Mean Platelet Volume 11.5 fL (7.4-10.4); Platelet Count 136 K/uL (130-400); RDW Coefficient of Variation 15.1 % (11.5-14.5); RDW Standard Deviation 50.9 fL (36.4-46.3); Red Blood Count 3.44 M/uL (4.7-6.1); White Blood Count 6.13 K/uL (4.8-10.8)
[2019-03-17 07:50] LABS: Albumin Level 2.2 gm/dl (3.4-5.0); BUN Creatinine Ratio 6.8 (10-20); Calcium 7.9 mg/dl (8.5-10.1); Creatinine Clr Calc Pharmacy 66.3 ml/min; Est GFR (African American) 74.8; Est GFR (Non-African American) 64.6; Magnesium 1.9 mg/dl (1.8-2.4); Potassium 3.8 mmol/L (3.5-5.1)
[2019-03-17 07:53] LABS: Bilirubin Direct 0.3 mg/dl (0-0.2); Bilirubin,Total 0.7 mg/dl (0.2-1); Total Protein 4.9 gm/dl (6.4-8.2)
[2019-03-17] MEDS: ZINC SULFATE 220 MG CAPSULE PO SCH (08:40)
[2019-03-17] MEDS: DOCUSATE SODIUM 100 MG CAP PO SCH ×2 (08:40→20:05)
[2019-03-17] MEDS: MULTIVITAMIN TAB PO SCH (08:40)
[2019-03-17] MEDS: ASPIRIN 81 MG ECTAB PO SCH (08:40)
[2019-03-17] MEDS: METOPROLOL TARTRATE 25 MG TAB PO SCH (08:40)
[2019-03-17] MEDS: OXYCODONE/ACETAMINOPHEN 5mg/325mg TAB PO PRN ×2 (08:41→18:28)
[2019-03-17] MEDS: CHOLECALCIFEROL 1,000 UNITS TAB PO SCH (08:41)
[2019-03-17] MEDS: ASCORBIC ACID 500 MG TAB PO SCH (08:41)
[2019-03-17] MEDS ORDERED: ASPIRIN 81 MG ECTAB PO SCH (09:00)
[2019-03-17] MEDS ORDERED: NON-FORMULARY MEDICATION (Turmeric Root Extract 500 MG) PO SCH (09:00)
[2019-03-17] MEDS ORDERED: [UNRECOGNIZED DRUG - OTHER] PO SCH (09:00)
--- NOTE | 2019-03-17 11:02 | Anesthesiology Progress Note ---
Date of Service March 17, 2019 Anesthesia Post Procedure Vital Signs Vital Signs: Temp Pulse Pulse Pulse Resp BP Pulse Ox 03/17/19 08:38 57 L 134/71 03/17/19 07:41 36.8 C 54 L 16 128/72 95 03/17/19 03:03 36.9 C 62 16 131/71 94 03/16/19 23:16 37.1 C 69 16 116/63 94 03/16/19 19:32 36.7 C 53 L 16 145/79 H 97 03/16/19 16:21 36.4 C L 59 L 14 153/80 H 97 03/16/19 14:58 36.6 C 55 L 14 145/70 H 97 03/16/19 14:44 36.5 C 60 16 154/82 H 97 03/16/19 13:59 36.7 C 58 L 16 170/58 H 95 03/16/19 13:19 36.7 C 62 18 163/79 H 93 03/16/19 12:55 36.5 C 59 L 16 158/77 H 96 03/16/19 12:45 60 16 155/78 H 99 03/16/19 12:35 57 L 16 164/78 H 97 03/16/19 12:29 36.8 C 63 12 172/85 H 98 Pain Intensity Abdomen: Pain Intensity: 4 Notes Mental Status: alert / awake / arousable and participated in evaluation Patient Amnestic to Procedure: Yes Pain: adequately controlled Airway Patency, RR, SpO2: stable & adequate BP & HR: stable & adequate Anesthetic Complications: no major complications apparent
--- NOTE | 2019-03-17 11:04 | Surgery Progress Note ---
Date of Service pt is doing fine, passed BM , no abdominal pain, no nausea, no vomiting, no fever, LFT normal, HOMAR 120 ml/day. clear. March 17, 2019 Assessment & Plan (1) Acute cholecystitis: CT scan with pericholecystic fluid and edema consistent with acute cholecystitis. Elevated leukocytosis on admission of 18K. LFTS within normal limits however t. bili was slightly elevated at 1.5. Unable to obtain MRCP given retained cardiac leads from prior cardiac procedure. HIDA scan showing no visualization of contrast into small bowel so choledocholithiasis could not be ascertained. Gallbladder showed up 90 minutes on HIDA suggesting chronic cholecystitis. Ultrasound today showing severe gallbladder wall thickening and dilated common bile duct. LFTs and t bili elevated today. Mild fever last night with Tmax of 38.0. t. bili 1.5 --> 3.1 AST 15 --> 290 ALT 20 --> 251 Alk 84 --> 281 Plan: Given elevations of LFTS and t.bili, GI consult for possible ERCP. He was downstairs obtaining HIDA scan when labs returned elevated. Ultrasound of gallbladder to further evaluate extent of cholecystitis and CBD Continue IV abx Continue NPO until GI's plans determined Continue medical management Will determine timing of cholecystectomy once GI's plans determined and if need for ERCP. Dr. Barbour has seen patient, agrees with above Addendum: Patient going for ERCP tomorrow morning at 7:15 am Plan for lap beatriz on clears today NPO after midnight monitor labs 03/15/2019 10:35am I recommend to do laparoscopic cholecystectomy, possible open or cholangiogram tomorrow at 10:25am, D/W benefits, risks and alternatives of the surgery, the risks - infection, bleeding, injury CBD, bowel, DVT, WA, stroke, , pt understood, he agrees with the surgery, I answered all questions, 03/17/2019 11:01am pt is doing fine, sign off today, post-op care instruction was given, keep the dressing on for 3 days, no heavy lifting > 20 LBS for 4 weeks, F/U me next Wednesday, for remove HOMAR drainage, , Thanks, (2) Elevated LFTs: Plan as above Subjective Patient is seen and examined at bedside Had laparoscopic cholecystectomy today Reports urinary retention. Abdominal pain is controlled Denies any chest pain, shortness of breath, dizziness, nausea No other complaints Physical Exam Constitutional: WD/WN, vitals as above well developed Neck: trachea midline, no thyromegaly Respiratory: normal respiratory effort, lungs clear to auscultation Cardiovascular: RRR, no murmur, no edema Gastrointestinal (Abdomen): NT, ND, soft, all incisions intact, no drainage, no redness, BS + Musculoskeletal: no cyanosis or clubbing, extremities motor strength 5/5 Neurologic: awake Psychiatric: Orientation: alert and oriented x 3 Results & Data Vital Signs (Past 12 Hours) Vital Signs Temp Pulse Pulse Pulse Resp BP Pulse Ox 03/17/19 08:38 57 L 134/71 03/17/19 07:41 36.8 C 54 L 16 128/72 95 03/17/19 03:03 36.9 C 62 16 131/71 94 03/16/19 23:16 37.1 C 69 16 116/63 94 Laboratory Results Abnormal lab results 03/17/19 03/17/19 Range/Units 06:56 06:56 RBC 3.44 L (4.7-6.1) M/uL Hgb 10.6 L (14.0-18.0) g/dL Hct 31.3 L (42-52) % RDW Std Deviation 50.9 H (36.4-46.3) fL RDW Coeff of Michelle 15.1 H (11.5-14.5) % MPV 11.5 H (7.4-10.4) fL Chloride 110 H (98-107) mmol/L BUN/Creatinine Ratio 6.8 L (10-20) Glucose 127 H (70-99) mg/dl Calcium 7.9 L (8.5-10.1) mg/dl Direct Bilirubin 0.3 H (0-0.2) mg/dl ALT 105 H (12-78) U/L Alkaline Phosphatase 189 H (45-117) U/L Total Protein 4.9 L (6.4-8.2) gm/dl Albumin 2.2 L (3.4-5.0) gm/dl
--- NOTE | 2019-03-17 11:58 | Anesthesiology Progress Note ---
Date of Service March 17, 2019 Anesthesia Post Procedure Vital Signs Vital Signs: Temp Pulse Pulse Pulse Resp BP Pulse Ox 03/17/19 08:38 57 L 134/71 03/17/19 07:41 36.8 C 54 L 16 128/72 95 03/17/19 03:03 36.9 C 62 16 131/71 94 03/16/19 23:16 37.1 C 69 16 116/63 94 03/16/19 19:32 36.7 C 53 L 16 145/79 H 97 03/16/19 16:21 36.4 C L 59 L 14 153/80 H 97 03/16/19 14:58 36.6 C 55 L 14 145/70 H 97 03/16/19 14:44 36.5 C 60 16 154/82 H 97 03/16/19 13:59 36.7 C 58 L 16 170/58 H 95 03/16/19 13:19 36.7 C 62 18 163/79 H 93 03/16/19 12:55 36.5 C 59 L 16 158/77 H 96 03/16/19 12:45 60 16 155/78 H 99 03/16/19 12:35 57 L 16 164/78 H 97 03/16/19 12:29 36.8 C 63 12 172/85 H 98 Pain Intensity Abdomen: Pain Intensity: 4 Notes Mental Status: alert / awake / arousable Patient Amnestic to Procedure: Yes Nausea / Vomiting: adequately controlled Pain: adequately controlled Airway Patency, RR, SpO2: stable & adequate BP & HR: stable & adequate Hydration State: stable & adequate Anesthetic Complications: no major complications apparent and Pt Satisfied with anesthetic care
[2019-03-17] MEDS ORDERED: TAMSULOSIN HCL 0.4 MG CAP PO ONE (13:15)
--- NOTE | 2019-03-17 17:52 | Hospitalist Progress Note ---
Date of Service March 17, 2019 Assessment & Plan (1) Abdominal pain: (2) Acute cholecystitis: Patient presented with abdominal pain, intermittent since past 9 months however became more persistent 4 days prior to admission --CT ABD/pelvis showing distended gallbladder with considerable pericholecystic edematous change --HIDA:Patency of the common duct cannot be confirmed given lack of passage of radiotracer into the small bowel. Choledocholithiasis is not excluded. Visualization of the gallbladder before 1 hour. No convincing evidence of acute cholecystitis. --ABD USD:Despite the negative Corrales's sign, findings are highly suspicious for acute or chronic cholecystitis. HIDA scan findings from earlier today may favor chronic cholecystitis over acute. Surgical consultation is recommended. Extrahepatic biliary ductal prominence could suggest choledocholithiasis. The report will be called/faxed according to standard departmental protocol. --Elevated LFTs -Choledocholithiasis S/P ERCP: The major papilla was adjacent to a diverticulum. Choledocholithiasis was found. Complete removal was accomplished by biliary sphincterotomy and balloon extraction. A biliary sphincterotomy was performed. The biliary tree was swept. S/P laparoscopic cholecystectomy POD #1 Continue IV fluids, IV antibiotics Monitor LFTs Appreciate GI/Surgery Input Pain control No plan to continue antibiotics upon discharge Urinary Retention--acute on chronic Straight Cath PRN monitor Started on flomax Consider urology if no resolution of symptoms (3) Paroxysmal SVT (supraventricular tachycardia): (4) PVCs (premature ventricular contractions): No acute issues Continue beta-stas (5) DVT prophylaxis: Heparin SQ Code Status Full Code Disposition: Expect to discharge home in next 24-48 hrs Subjective Patient is seen and examined at bedside Complains of abd pain at surgical site Urinary retention improving No BM today Discussed with Surgery Today Denies any chest pain, shortness of breath, dizziness, nausea Family at bedside Review of Systems Review of Systems: All systems reviewed & are unremarkable except as noted in HPI & below Physical Exam Physical Exam: Physical Exam: Vitals signs as noted above General Appearance:Moderately built and nourished, no apparent distress Head: normocephalic, Atraumatic Eyes: normal inspection, EOMI, +Icteric Neck: supple, Trachea midline Respiratory/Chest: Normal breath sounds, CTA Cardiovascular: S1, S2, No murmur Abdomen/GI:Soft, , mild tender, +Surgical scars in dressing, + drain, Bowel sounds present Extremities/Musculoskelatal:normal inspection, no edema Neurologic/Psych:AAOX3, grossly no focal neurological deficits Skin: normal color, warm Results & Data Vital Signs (Past 12 Hours) Vital Signs Temp Pulse Pulse Pulse Resp BP Pulse Ox 03/17/19 15:15 36.7 C 56 L 18 126/70 98 03/17/19 12:05 36.7 C 56 L 18 138/72 96 03/17/19 08:38 57 L 134/71 03/17/19 07:41 36.8 C 54 L 16 128/72 95 Laboratory Results Short CBC 03/17/19 Range/Units 06:56 WBC 6.13 (4.8-10.8) K/uL Hgb 10.6 L (14.0-18.0) g/dL Hct 31.3 L (42-52) % Plt Count 136 (130-400) K/uL BMP 03/17/19 06:56 Sodium 142 Potassium 3.8 Chloride 110 H Carbon Dioxide 28 BUN 8 Creatinine 1.13 Glucose 127 H Calcium 7.9 L Liver Function 03/17/19 Range/Units 06:56 Total Bilirubin 0.7 D (0.2-1) mg/dl Direct Bilirubin 0.3 H (0-0.2) mg/dl AST 27 (15-37) U/L ALT 105 H (12-78) U/L Alkaline Phosphatase 189 H (45-117) U/L Albumin 2.2 L (3.4-5.0) gm/dl
[2019-03-17] MEDS: HEPARIN SOD 5,000 UNIT/0.5 ML VIAL SQ SCH (20:36)
[2019-03-18] MEDS: D5W AND LACTATED RINGERS 1,000 ML IV SCH (00:27)
[2019-03-18] MEDS: OXYCODONE/ACETAMINOPHEN 5mg/325mg TAB PO PRN (03:12)
[2019-03-18] MEDS: PIPERACILLIN/TAZOBACTAM 3.375 GM in DEXTROSE 5% 100 ML IV SCH ×2 (05:33→13:13)
[2019-03-18 06:18] LABS: Hematocrit (blood only) 32.8 % (42-52); Hemoglobin 11.1 g/dL (14.0-18.0); Mean Corpuscular Hgb Conc 33.8 g/dL (32-36); Mean Corpuscular Volume 91.4 fL (80-100); Mean Platelet Volume 12.3 fL (7.4-10.4); Platelet Count 155 K/uL (130-400); RDW Coefficient of Variation 15.1 % (11.5-14.5); RDW Standard Deviation 50.9 fL (36.4-46.3); Red Blood Count 3.59 M/uL (4.7-6.1); White Blood Count 9.16 K/uL (4.8-10.8)
[2019-03-18 06:44] LABS: BUN Creatinine Ratio 7.7 (10-20); Creatinine Clr Calc Pharmacy 78.8 ml/min; Est GFR (African American) 92.3; Est GFR (Non-African American) 79.7; Potassium 3.6 mmol/L (3.5-5.1)
[2019-03-18] MEDS: MULTIVITAMIN TAB PO SCH (08:23)
[2019-03-18] MEDS: DOCUSATE SODIUM 100 MG CAP PO SCH (08:23)
[2019-03-18] MEDS: ASPIRIN 81 MG ECTAB PO SCH (08:24)
[2019-03-18] MEDS: CHOLECALCIFEROL 1,000 UNITS TAB PO SCH (08:24)
[2019-03-18] MEDS: ASCORBIC ACID 500 MG TAB PO SCH (08:24)
[2019-03-18] MEDS: ZINC SULFATE 220 MG CAPSULE PO SCH (08:25)
[2019-03-18] MEDS: HEPARIN SOD 5,000 UNIT/0.5 ML VIAL SQ SCH (08:25)
[2019-03-18] MEDS: METOPROLOL TARTRATE 25 MG TAB PO SCH (08:32)
[2019-03-18] MEDS ORDERED: TAMSULOSIN HCL 0.4 MG CAP PO SCH (09:00)
--- NOTE | 2019-03-18 12:37 | Hospitalist Progress Note ---
Date of Service March 18, 2019 Assessment & Plan (1) Abdominal pain: (2) Acute cholecystitis: Patient presented with abdominal pain, intermittent since past 9 months however became more persistent 4 days prior to admission --CT ABD/pelvis showing distended gallbladder with considerable pericholecystic edematous change --HIDA:Patency of the common duct cannot be confirmed given lack of passage of radiotracer into the small bowel. Choledocholithiasis is not excluded. Visualization of the gallbladder before 1 hour. No convincing evidence of acute cholecystitis. --ABD USD:Despite the negative Corrales's sign, findings are highly suspicious for acute or chronic cholecystitis. HIDA scan findings from earlier today may favor chronic cholecystitis over acute. Surgical consultation is recommended. Extrahepatic biliary ductal prominence could suggest choledocholithiasis. The report will be called/faxed according to standard departmental protocol. --Elevated LFTs -Choledocholithiasis S/P ERCP: The major papilla was adjacent to a diverticulum. Choledocholithiasis was found. Complete removal was accomplished by biliary sphincterotomy and balloon extraction. A biliary sphincterotomy was performed. The biliary tree was swept. S/P laparoscopic cholecystectomy POD #2 Discontinue IV fluids, IV antibiotics Monitor LFTs Appreciate GI/Surgery Input Pain is controlled Continue wound care Urinary Retention--acute on chronic Straight Cath PRN monitor Continue flomax Urinating with out issues today May need urology eval as outpatient if recurrence (3) Paroxysmal SVT (supraventricular tachycardia): (4) PVCs (premature ventricular contractions): No acute issues Continue beta-stas (5) DVT prophylaxis: Heparin SQ Code Status Full Code Disposition: Plan to discharge home Subjective Patient is seen and examined at bedside Nauseous earlier today which improved Abd pain is improving as well Denies any chest pain, shortness of breath, dizziness No other complaints Review of Systems Review of Systems: All systems reviewed & are unremarkable except as noted in HPI & below Physical Exam Physical Exam: Physical Exam: Vitals signs as noted above General Appearance:Moderately built and nourished, no apparent distress Head: normocephalic, Atraumatic Eyes: normal inspection, EOMI, +Icteric Neck: supple, Trachea midline Respiratory/Chest: Normal breath sounds, CTA Cardiovascular: S1, S2, No murmur Abdomen/GI:Soft, , non tender, +Surgical scars in dressing, + drain, Bowel sounds present Extremities/Musculoskelatal:normal inspection, no edema Neurologic/Psych:AAOX3, grossly no focal neurological deficits Skin: normal color, warm Results & Data Vital Signs (Past 12 Hours) Vital Signs Temp Pulse Pulse Resp BP Pulse Ox 03/18/19 08:31 53 L 145/81 H 03/18/19 07:04 37.0 C 48 L 18 131/74 91 Laboratory Results Short CBC 03/18/19 Range/Units 05:25 WBC 9.16 (4.8-10.8) K/uL Hgb 11.1 L (14.0-18.0) g/dL Hct 32.8 L (42-52) % Plt Count 155 (130-400) K/uL BMP 03/18/19 05:25 Sodium 140 Potassium 3.6 Chloride 106 Carbon Dioxide 29 BUN 7 Creatinine 0.95 Glucose 107 H Calcium 8.0 L
--- NOTE | 2019-03-18 13:28 | Discharge Summary ---
Date of Service March 18, 2019 Admission HPI Per Admitting Provider 73-year-old male who presents to the ED with abdominal pain. Patient reports his pain has been intermittent for the past 9 months. He had acute worsening of his pain 4 days ago after eating chicken wings. Patient reports pain is been persistent since that time. He describes the pain as generalized and a dull ache. He has had a poor appetite however denies nausea and vomiting. No diarrhea. Reports he fell feverish and had chills however did not take his temperature. Patient has been otherwise doing well recently. He denies chest pain shortness of breath. No lightheadedness, dizziness, diaphoresis, syncopal events. No urinary symptoms. In the ED, CT ABD/pelvis shows distended gallbladder with considerable pericholecystic edematous change. WBC 18 K. Patient otherwise hemodynamically stable. He was given IVF, IV Zofran, IV Zosyn, IV fentanyl. Admission Exam Per Admitting Provider Constitutional: WD/WN, vitals as above Eyes: PERRL, conjunctivae normal, anicteric sclerae ENMT: external ear and nose normal, oropharynx normal Respiratory: normal respiratory effort, lungs clear to auscultation Cardiovascular: Rate/Rhythm: regular rate and regular rhythm Vessels: normal peripheral pulses Extremities: no edema Gastrointestinal (Abdomen): Inspection/Auscultation: + abdomen distended and normal bowel sounds Percussion/Palpation: + abdomen tender (RLQ, RUQ) and abdomen soft; no hepatosplenomegaly Musculoskeletal: no cyanosis or clubbing, extremities motor strength 5/5 Skin: no rashes, warm and dry Neurologic: PERRL, EOMI, accommodation nl, no face palsy, no dysarthria Psychiatric: A+Ox3, euthymic affect Principal Diagnosis Discharge Information Discharge Diagnosis Acute cholecystitis Urinary retention Discharge Goals Decrease discomfort,Improve function,Improve disease control Discharge Activity Limitations Per instructions/follow-up Discharge Data Allergies Allergy/AdvReac Type Severity Reaction Status Date / Time No Known Allergies Allergy Unknown Verified 06/11/07 07:21 Consultations 03/13/19 08:16 ED Decision to Admit Stat 03/13/19 09:52 Consult General Surgery Routine 03/14/19 08:35 Consult Gastroenterology Routine Procedures Performed Operation Date: 03/15/19 07:15 Actual Procedures p Endoscopic Retrograde Cholangiopancreatogram(Not Applicable) - Les Santos MD Operation Date: 03/16/19 10:25 Actual Procedures p Laparoscopic Cholecystectomy - Toby Barbour MD CT ABD: 1. Distended gallbladder with considerable pericholecystic edematous change. 2. Right upper quadrant ultrasound is recommended to exclude acute cholecystitis. 3. Focal right middle lobe atelectatic/infiltrative change. 4. Trace free fluid within the pelvic cul-de-sac. CXR: Mild cardiac enlargement with no acute cardiopulmonary abnormality. HIDA Scan: 1. Patency of the common duct cannot be confirmed given lack of passage of radiotracer into the small bowel. Choledocholithiasis is not excluded. 2. Visualization of the gallbladder before 1 hour. No convincing evidence of acute cholecystitis. ABD USD: 1. Despite the negative Corrales's sign, findings are highly suspicious for acute or chronic cholecystitis. HIDA scan findings from earlier today may favor chronic cholecystitis over acute. Surgical consultation is recommended. 2. Extrahepatic biliary ductal prominence could suggest choledocholithiasis. ERCP: Impression: - The major papilla was adjacent to a diverticulum. - Choledocholithiasis was found. Complete removal was accomplished by biliary sphincterotomy and balloon extraction. - A biliary sphincterotomy was performed. - The biliary tree was swept. Recommendation: - Surgical consultation for consideration of cholecystectomy as previously scheduled. - [facility] to [facility] for [facility] care. Ordered Studies 03/13/19 07:20 CT abd pelvis IV con only Stat 03/14/19 09:45 US abdomen limited Routine 03/15/19 07:15 [place] ERCP biliary ductal Routine Hospital Course (1) Abdominal pain: (2) Acute cholecystitis: Patient presented with abdominal pain, intermittent since past 9 months however became more persistent 4 days prior to admission --CT ABD/pelvis showing distended gallbladder with considerable pericholecystic edematous change --HIDA:Patency of the common duct cannot be confirmed given lack of passage of radiotracer into the small bowel. Choledocholithiasis is not excluded. Visualization of the gallbladder before 1 hour. No convincing evidence of acute cholecystitis. --ABD USD:Despite the negative Corrlaes's sign, findings are highly suspicious for acute or chronic cholecystitis. HIDA scan findings from earlier today may favor chronic cholecystitis over acute. Surgical consultation is recommended. Extrahepatic biliary ductal prominence could suggest choledocholithiasis. The report will be called/faxed according to standard departmental protocol. --Elevated LFTs -Choledocholithiasis S/P ERCP: The major papilla was adjacent to a diverticulum. Choledocholithiasis was found. Complete removal was accomplished by biliary sphincterotomy and balloon extraction. A biliary sphincterotomy was performed. The biliary tree was swept. S/P laparoscopic cholecystectomy POD #2 Discontinue IV fluids, IV antibiotics Monitor LFTs Appreciate GI/Surgery Input Pain is controlled Continue wound care Urinary Retention--acute on chronic Straight Cath PRN monitor Continue flomax Urinating with out issues today May need urology eval as outpatient if recurrence (3) Paroxysmal SVT (supraventricular tachycardia): (4) PVCs (premature ventricular contractions): No acute issues Continue beta-stas (5) DVT prophylaxis: Heparin SQ Code Status Full Code Disposition: Plan to discharge home Total Time Total Time Spent Total Time Spent (In Minutes): 43 minutes Total Time Includes: Examination of the Patient, Discharge Planning, Medication Reconciliation, Communication With Other Providers and Other Discharge Plan Discharge Items Patient Disposition: Home - Self-Care Reason For Visit: ACUTE CHOLECYSTITIS Discharge Diagnosis: Acute cholecystitis Urinary retention Discharge Goals: Decrease discomfort, Improve disease control and Improve function Activity: Per 'Additional Instructions' section Exercise/Sports: Gradually increase as tolerated Non-emergency contact: Primary Care Provider and Surgeon Call non-emergency contact if: you have any medication questions, your symptoms worsen, your pain is not controlled, your pain is worsening, your pain is unusual for you, your pain is concerning for you, you have a fever, your wound has increased redness, your wound has increased drainage and your wound pain has increased Follow-up/Referrals: Lydia Casey, [Primary Care Provider] - Diet: Heart Healthy Add Provider Instructions: Follow-up with your primary care physician in 1 week as advised Follow-up with your surgeon Dr. Barbour as scheduled Follow up with your urologist as outpatient as advised Seek immediate medical attention if your symptoms reoccur or worsen Surgical discharge instructions: - No heavy lifting over 20 pounds for 3-4 weeks - No strenuous activity until cleared by surgeon - No submerging incisions underwater for 2 weeks (no bathing, swimming, or hot tubs) - No driving while taking narcotic pain medication or until you are pain free - You may shower once drain removed, sponge bath and wash hair in meantime. - Keep record of surgical drain color and amount. Empty drain twice a day or as needed. Bring record with you to office. - Leave dressings on for 3 days and then remove. Leave steri strips on incisions for 7 days and then remove. - You will be given prescription for narcotic pain medication (Percocet) as needed for moderate to severe pain. Take as directed. May cause constipation and drowsiness. - May take extra strength Tylenol or Ibuprofen as needed for mild pain. Avoid taking Tylenol while taking Percocet as Percocet has Tylenol in it. - No dietary restrictions, certain foods may not agree with you for the first few weeks. Advance diet as you tolerate it. - Follow-up in surgical office on Wednesday03/21/2019 for drain removal. Please call office at [phone] to make an appointment. Prescriptions: New oxycodone-acetaminophen 5-325 mg tablet 1 tab PO Q4H PRN (Reason: pain) Qty: 18 RF: 0 polyethylene glycol 3350 [Miralax] 17 gram Powder In Packet 17 g PO DAILY PRN (Reason: constipation) 30 Days Qty: 30 RF: 0 tamsulosin 0.4 mg Capsule 0.4 mg PO QAM 30 Days Qty: 30 RF: 0 docusate sodium 100 mg Capsule 100 mg PO BID 14 Days Qty: 28 RF: 0 ondansetron HCl [Zofran] 4 mg tablet 4 mg PO Q8H PRN (Reason: nausea and vomiting) Qty: 14 RF: 0 Continued multivitamin Tablet 1 tab PO DAILY Qty: 0 RF: 0 ascorbic acid (vitamin C) [Vitamin C] 500 mg Tablet 1,500 mg PO DAILY Qty: 0 RF: 0 cholecalciferol (vitamin D3) [Vitamin D3] 1,000 unit (25 mcg) Tablet 1,000 unit PO DAILY Qty: 0 RF: 0 metoprolol tartrate 25 mg Tablet 25 mg PO DAILY Qty: 0 RF: 0 aspirin 81 mg Tablet,Delayed Release (Dr/Ec) 81 mg PO DAILY RF: 0 zinc gluconate 50 mg Tablet 50 mg PO DAILY RF: 0 turmeric root extract 500 mg Capsule 500 mg PO DAILY RF: 0 Essential 90 Powder (Multivitamin) 1 dose PO DAILY RF: 0 Stand-Alone Forms: Call Back Authorization, [facility], [facility]/Other Patient Handouts: Surgery Prevent DVT After, Tube Segun Sylvester Drainage Care Discharge Orders: Discharge Order (Routine); Ordered 03/18/19 Ordered By: Caleb Marshall Admission Data Admit Date/Time: 03/13/19 08:58 Attending Provider: Caleb Marshall Admit Provider: Caleb Marshall Primary Care Provider: Lydia Casey Other Providers: Caleb Marshall ; Toby Barbour ; Jasper Zimmerman ; Fidelia eLyva ; Charmaine Baca ; Silvio Keller ; Rob Arana ; Erendira Mandel ; Susannah Lamb ; Les Santos ; Booker Massey ; Cynthia Chicas ; Zoë Shi ; Jessica Parks ; Patricia Aguilar ; Ankur Fox Service: Medical Other Interventions: Discharge Summary Assessment (RN) Last Done: 03/18/19 13:50 Pending Studies at Discharge: Yes (Gallbladder pathology, will be reviewed at follow-up visit) DC Date/Time DO NOT enter until pt leaves facility: 03/18/19 15:55
== END 2019-03-18 15:55 | disposition home or self-care (01) | DRG 418 ==
LOC: ED 07:03 → 3W 08:58